=== PATIENT | female | born 1990 | race Two or more races ===

== ENCOUNTER 2023-03-31 15:25 | Emergency (ER) | payer MEDICAID, SELFPAY ==
[2023-03-31 15:36] VITALS: BP 136/76; PULSE 76; RESP 18; TEMP 37; O2SAT 98; BMI 31.8
--- NOTE | 2023-03-31 15:36 | ED.GENADULT ---
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 She reports the blood is only present when she wipes however it does not filled the toilet. Has never had a colonoscopy. This is never happened to her in the past other than over the past month. Patient tells me that she has been more constipated than usual over the past few months, unsure why. Is not followed by GI. She reports she gets intermittent abdominal cramping however not present at this time. Patient denies nausea, vomiting, headache, vision changes, dizziness, weakness, chest pain, shortness of breath. Not on blood thinners Related Data Previous Rx's Medication Instructions Recorded docusate sodium 100 mg capsule 100 mg PO BID #20 caps 03/31/23 (Colace) sennosides 8.6 mg tablet (senna) 8.6 mg PO BEDTIME #14 tabs 03/31/23 Allergies Allergy/AdvReac Type Severity Reaction Status Date / Time No Known Allergies Allergy Verified 03/31/23 15:46 Review of Systems Review of Systems: Constitutional : No Weight loss, No Fever, No Chills, No Fatigue, No Malaise ENT/Mouth : No sore throat, No Rhinorrhea Eyes: No Eye Pain, No Swelling, No Redness Cardiovascular : No Chest Pain, No SOB, No Dyspnea on Exertion, No Orthopnea, No Edema, No Palpitations Respiratory : No Cough, No Sputum, No Wheezing Gastrointestinal : No Nausea, No Vomiting, No Diarrhea, No Constipation, No abdominal Pain, + Hematochezia, No Melena Genitourinary : No Dysuria, No Urinary Frequency, No Hematuria, Musculoskeletal : No joint pain, No Myalgias, No Joint Swelling Skin : No Skin Lesions, No rash Neuro : No Weakness, No Numbness, No Dizziness, No Headache Psych : No Anxiety/Panic, No Depression All other systems reviewed and are negative Yes all other systems are reviewed and are negative [facility] Past Medical History Attestation statement: The following information was validated with the patient. Source: old records reviewed and nursing notes reviewed Social History Social History Smoked in Last 30 Days: No Use of substances other than those prescribed or required for medical reasons: No Physical Exam ED Vital Signs: Vital Signs - 24 hr 03/31/23 15:36 Temperature 98.6 F Pulse Rate 76 Respiratory Rate 18 Blood Pressure 136/76 Pulse Oximetry 98 Oxygen Delivery Method Room Air BMI result Body Mass Index 31.8 vss Appearance: Alert.? Oriented X3.? No acute distress.? Head: Normocephalic, atraumatic, no step-offs or deformities Eyes: Pupils equal, round and reactive to light.? ENT: Pharynx normal.? Neck: Normal inspection.? Neck supple.? CVS: Normal heart rate and rhythm.? Pulses normal.? Respiratory: No respiratory distress.? Breath sounds normal.? Abdomen: Soft and nontender.? Skin: Skin warm and dry.? Normal skin color.? Normal skin turgor.? Extremities: No lower extremity edema.? No calf ttp. 5/5 strength to bilateral upper and lower extremities Back: No midline tenderness, no C-spine tenderness, full range of motion, no CVA tenderness bilaterally Neuro: Oriented X 3.? No motor deficit.? No sensory deficit. CN 2-12 intact Sensitive exam: Normal external rectum, no visualize hemorrhoids. Normal digital rectal exam, no blood noted on AYESHA. Normal rectal tone. No fissures or lesions noted. Course Course Course Narrative: This is an RME: Additional HPI, ROS, PE not included below will be deferred to primary provider. This is a 33-year-old Creole speaking female, with a history of insomnia, migraines, positive DEAN, presenting to the emergency department for evaluation of abdominal pain x 1 month. Pt had bowel movement today and noticed blood on the toilet paper. Defer imaging until seen by primary provider in main emergency department. VSS. Plan: Labs and UA ordered. Reevaluation(s) Reevaluation #1: CBC unremarkable x2. No signs of acute blood loss anemia. Chemistry no acute findings requiring intervention at this time. Normal lipase. Abdomen remains nontender on exam no need for imaging. Negative OBS. I suspect likely anal fissure/rectal fissure tear secondary to constipation. Will discharge patient home with stool softeners. Will give her handout on dietary changes/increased water intake. Will have her follow-up with GI as she has not had a colonoscopy and is reporting blood in stool. Educated patient on diagnosis and treatment plan, answered all question, patient verbalizes understanding. At this time patient will be discharged home, advised to return with new or worsening symptoms. Educated on worrisome signs and symptoms and when to return. At this time I feel comfortable discharge home. Time: 17:59 Medical Decision Making Medical Decision Making [facility] Narrative: 33-year-old female presents with blood on toilet paper after she wipes intermittently for the past month and intermittent abdominal pain, not present at this time. Physical exam benign, Normal external rectum, no visualize hemorrhoids. Normal digital rectal exam, no blood noted on AYESHA. Normal rectal tone. No fissures or lesions noted. Mague CORDOVA at bedside This is likely rectal fissure secondary to constipation/heart stool or possible small internal hemorrhoids that may be intermittently bleeding. Low suspicion for large lower GI bleed. Will rule out electrolyte abnormalities and anemia although unlikely. Plan at this time digital rectal exam, basic labs. CBC done at triage, will repeat to make sure patient is not losing blood. Differential Diagnosis Differential Diagnoses: The differential diagnosis associated with the presentation includes This is likely rectal fissure secondary to constipation/heart stool or possible small internal hemorrhoids that may be intermittently bleeding. Low suspicion for large lower GI bleed. Will rule out electrolyte abnormalities and anemia although unlikely. Admission/Observation Consideration of admission/observation: Escalation of care including admission/observation considered Not indicated Lab Data [facility] Lab Attestation statement: I reviewed the patient's lab results. 03/31/23 15:58 03/31/23 15:58 Labs: Lab Results 03/31/23 03/31/23 03/31/23 Range/Units 15:58 15:58 17:40 WBC 4.5 L (4.8-10.8) X10*3/uL RBC 4.71 (4.20-5.50) X10*6/uL Hgb 13.7 (12.0-16.0) g/dl Hct 41.0 (37.0-47.0) % MCV 87.0 (80.0-98.0) fL MCH 29.1 (27.0-33.0) pg MCHC 33.4 (31.0-35.0) g/dl RDW 13.2 (11.0-16.0) % Plt Count 279 (160-400) X10*3/uL MPV 10.2 (9.4-12.3) fL Immature Gran % (Auto) 0.2 (0.0-0.4) % Neut % (Auto) 52.6 (45-73) % Lymph % (Auto) 38.1 (20-40) % Ward % (Auto) 8.0 (2-11) % Eos % (Auto) 0.7 (0-4) % Baso % (Auto) 0.4 (0-2) % Lymph # (Auto) 1.7 (1.2-4.9) X10*3/uL Ward # (Auto) 0.4 (0.1-1.2) X10*3/uL Eos # (Auto) 0.0 (0.0-0.4) X10*3/uL Baso # (Auto) 0.0 (0.0-0.2) X10*3/uL Abs Immat Gran (auto) 0.01 (0.00-0.03) X10*3/uL Absolute Neuts (auto) 2.4 (2.0-8.3) x10*3/uL Absolute Nucleated RBC 0.000 (0.0-0.012) X10*3/uL Nucleated RBC % (auto) 0.0 (0.0-0.2) /100WBC Sodium 138 (135-145) mmol/L Potassium 4.4 (3.3-5.1) mmol/L Chloride 108 (96-108) mmol/L Carbon Dioxide 24 (22-29) mmol/L Anion Gap 10 L (12-20) BUN 8 L (9-16) mg/dL Creatinine 0.70 (0.5-1.4) mg/dL Estim Creat Clear Calc 130.6 Estimated GFR > 60 Random Glucose 91 (60-115) mg/dL Calcium 9.4 (8.4-10.2) mg/dL Total Bilirubin 0.8 (0.0-1.0) mg/dL Direct Bilirubin 0.2 (0.0-0.5) mg/dL AST 19 (5-31) U/L ALT 16 (0-31) U/L Alkaline Phosphatase 70 (39-117) U/L Total Protein 8.3 H (6.5-8.0) g/dL Albumin 4.3 (3.5-5.0) g/dL Lipase 22 (8-78) U/L Stool Occult Blood NEGATIVE (NEGATIVE) Tests considered The following testing was considered but not selected: No need for lower GI bleeding study or CT scan of abdomen no abdominal tenderness on exam. Low suspicion for lower GI bleed. Core Measures AMI core measures followed: Yes Measure exclusions: not indicated Discharge Plan Discharge Clinical Impression: Constipation, Blood in stool Patient Disposition: Home, Self-Care Instructions: Constipation (ED), Rectal Bleeding (ED), High Fiber Diet (ED) Additional Instructions: Take your medications as prescribed. If you were prescribed antibiotics today, it is important that you take your medication to their entirety, do not skip any doses, do not finish them early. Follow-up with your primary care provider this week. Follow-up with gastroenterology you may require a colonoscopy. Return to the emergency department with new or worsening symptoms. Such as fevers, chills, chest pain, shortness of breath, nausea, vomiting, dizziness, headache, vision changes, lethargy In case of emergency call 911 You can take senna and Colace for constipation. This will help soften your stools. Drink plenty of fluids. And increase fiber intake Pran medikaman w yo ervin yo preskri w la. Si yo te preskri w antibyotik jeanne a, li enp?anderson hollie w hernando diaz ou an geovanna baldwin [facility] d?zgeovanna yo bon?. Swiv ak founis? swen prensipal ou clement?n sa a. Christianov ak gastroenteroloji ou remedios baker. Retounen mahnaz depvalentina [place] ak sent?m javier casey pi grav. Tankou lafy?v, frison, doul? nan pwatrin, souf kout, k? plen, vomisman, v?tij, malt?t, hadley lai. Nan ka ijans rele 911 Ou ka pran Senna ak Colace hollie konstipasyon. Sa a pral tracy adousi poupou ou yo. Bw? anpil likid. Ak ogmante konsomasyon fib Prescriptions: New sennosides [senna] 8.6 mg tablet 8.6 mg PO BEDTIME Qty: 14 0RF docusate sodium [Colace] 100 mg capsule 100 mg PO BID Qty: 20 0RF Referrals: Niall Mojica MD [Primary Care Provider] - 2 days Stand Alone Forms: Work/School Release
[2023-03-31 16:02] LABS: MANUAL DIFF FLAG NO
[2023-03-31 16:03] LABS: Basophils Percent Auto 0.4 % (0-2); Eosinophils Percent Auto 0.7 % (0-4); Hemoglobin 13.7 g/dl (12.0-16.0); Imm Gran Abs Auto 0.01 X10*3/uL (0.00-0.03); Imm Gran Pct Auto 0.2 % (0.0-0.4); Lymphocytes Absolute Auto 1.7 X10*3/uL (1.2-4.9); Lymphocytes Percent Auto 38.1 % (20-40); Mean Corpuscular HGB Conc 33.4 g/dl (31.0-35.0); Mean Corpuscular Hemoglobin 29.1 pg (27.0-33.0); Mean Platelet Volume 10.2 fL (9.4-12.3); Monocytes Absolute Auto 0.4 X10*3/uL (0.1-1.2); Neutrophils Absolute Auto 2.4 x10*3/uL (2.0-8.3); Neutrophils Percent Auto 52.6 % (45-73); Platelet Count 279 X10*3/uL (160-400); Red Blood Count 4.71 X10*6/uL (4.20-5.50); Red Cell Distribution Width 13.2 % (11.0-16.0); White Blood Count 4.5 X10*3/uL (4.8-10.8)
[2023-03-31 16:24] LABS: Alanine Aminotransferase 16 U/L (0-31); Albumin Level 4.3 g/dL (3.5-5.0); Alkaline Phosphatase 70 U/L (39-117); Anion Gap 10 (12-20); Aspartate Amino Transferase 19 U/L (5-31); Bilirubin Direct 0.2 mg/dL (0.0-0.5); Bilirubin Total 0.8 mg/dL (0.0-1.0); Blood Urea Nitrogen 8 mg/dL (9-16); Calcium 9.4 mg/dL (8.4-10.2); Carbon Dioxide 24 mmol/L (22-29); Chloride 108 mmol/L (96-108); Creatinine Clr Calc Pharmacy 130.6; Estimated Glomerular Filt Rate > 60; Glucose Random 91 mg/dL (60-115); Lipase 22 U/L (8-78); Potassium 4.4 mmol/L (3.3-5.1); Sodium 138 mmol/L (135-145); Total Protein 8.3 g/dL (6.5-8.0)
[2023-03-31 17:49] LABS: MANUAL DIFF FLAG NO
[2023-03-31 17:50] LABS: OBS Int Ctl Valid YES; OBS1 NEGATIVE (NEGATIVE)
[2023-03-31 17:54] LABS: Basophils Percent Auto 0.4 % (0-2); Eosinophils Percent Auto 0.6 % (0-4); Hematocrit 41.2 % (37.0-47.0); Imm Gran Abs Auto 0.03 X10*3/uL (0.00-0.03); Imm Gran Pct Auto 0.6 % (0.0-0.4); Lymphocytes Absolute Auto 2.1 X10*3/uL (1.2-4.9); Mean Corpuscular Hemoglobin 29.8 pg (27.0-33.0); Mean Corpuscular Volume 87.7 fL (80.0-98.0); Mean Platelet Volume 10.3 fL (9.4-12.3); Monocytes Absolute Auto 0.5 X10*3/uL (0.1-1.2); Monocytes Percent Auto 8.8 % (2-11); Neutrophils Absolute Auto 2.6 x10*3/uL (2.0-8.3); Neutrophils Percent Auto 49.6 % (45-73); Platelet Count 285 X10*3/uL (160-400); Red Cell Distribution Width 13.1 % (11.0-16.0); White Blood Count 5.2 X10*3/uL (4.8-10.8)
[2023-03-31 18:01] VITALS: BP 125/74; PULSE 92; RESP 16; O2SAT 100
[2023-03-31 18:08] LABS: Appearance Urine Clear; Color Urine Yellow; Glucose Urine UA Negative (Negative); Leukocyte Esterase Urine Trace (Negative); Nitrite Urine Negative (Negative); Specific Gravity - Urine 1.015 (1.005-1.025); UMIC TRIGGER UACC YES; Urine Blood Negative (Negative); Urine Ketones 15 mg/dL (Negative); Urine Protein Negative (Neg-Trace)
[2023-03-31 18:20] LABS: Bacteria Urine 3+ (None Seen); Hyaline Casts Urine 0-2 /LPF (0-2); RBC Urine 0-2 /HPF (0-2); UACC Culture Trigger YES
--- OUTSIDE RECORDS SUMMARY | 2023-03-31 18:36 | XMS_ITS | Continuity of Care Document ---
Author Name Unknown Organization [facility] ter Address [address] [place] [id number]- Care Team Providers Care Boom Stick Man Name Role Phone Not on Staff, PCP Primary Care Physician Unavail able Encounter [facility] Date(s): 01/30/23 - 01/30/[address] [address]- Encounter Diagnosis Atypical chest pain(Final) - 01/30/23 Chest wall pain(Final) - 01/30/23 Discharge Disposition: A-D/C Home Attending Physician: Tiara Fajardo MD Admitting Physician: Tiara Fajardo MD Referring Physician: Not on Staff, Referring MD Allergies, Adverse Reactions, Alerts No Known Allergies Medications lidocaine 5% topical film 1 patch, Topically, Daily, PRN Pain , Mild, Apply to painful area. remove after 12 hours, # 13 each, 0 Refills, Acute 03/02/23 12:00:00 EDT, 01/30/23 7:17:00 EDT, Film, [facility], Partial fill upon patient request if the prescrip... Start Date: 01/30/23 Stop Date: 03/02/23 Status: Ordered Motrin IB 200 mg oral tablet 2 tablet = 400 mg, By Mouth, Every 6 hours, PRN for pain, # 120 tablet, 0 Refills, Maintenance, 10/30/22 18:59:00 EST, Tablet, [facility]/pharmacy #[id number], Partial fill upon patient request if the prescription is for a schedule II opioid drug., 170, cm, ... Start Date: 10/30/22 Status: Ordered Tylenol 325 mg oral capsule 2 capsule = 650 mg, By Mouth, Every 6 hours, PRN as needed for fever, # 90 capsule, 0 Refills, Acute 06/02/23 12:00:00 EDT, 01/30/23 7:16:00 EDT, Capsule, [facility], Partial fillupon patient request if the prescription is for a s... Start Date: 01/30/23 Stop Date: 06/02/23 Status: Ordered Tylenol 325 mg oral tablet 650 mg, 2, tablet, By Mouth, Every 6 hours, PRN, # 120 tablet, Refills 0, Tot. Refills 0, Maintenance, for pain, 10/30/22 18:59:00 EST, Route to Pharmacy Electronically, [facility]/pharmacy #[id number], Partial fill upon patient request if the prescription is for... Start Date: 10/30/22 Status: Ordered Results Radiology Reports * Exam Date Time Procedure Performing Provider Status 01/30/23 6:36 AM US RUQ Marilee Martinez; Auth (V erified) Notes: (US RUQ) Reason For Exam: Abdominal Pain;Other: RESULT: US RUQ US RUQ Hx of Present Illness: epigastric pain x1 day, unable to get comfortable due to the pain. also c o sob due to pain and weakness. states had similar symptoms in past and it was due to H. pylori infection. Denies n v; Reason: Other:; Abdominal Pain; Clinical Question(s): Cholecystitis COMPARISON: None. FINDINGS: Liver: Normal in size and echotexture. No focal lesion. Smooth hepatic contour. Main portal vein patent with normal hepatopetal direction of flow. Gallbladder: No gallstones. Normal wall thickness. No pericholecystic fluid. Negative Brown sign. Biliary Tree: No intrahepatic or extrahepatic bile duct dilation is identified. Common duct measures: 0.3 cm. Pancreas: No abnormality in the visualized portions of the pancreas. Right kidney: 8.6 cm in length. Normal parenchymal echotexture and thickness. No hydronephrosis, stone or mass. IMPRESSION: Normal right upper quadrant ultrasound. I have personally reviewed the images and I agree with this report. WSN: [id number] Ordering Physician: James Honeycutt Dictated By: Jennifer Blanco MD Dictated Date/Time: 01/30/23 7:37 am Reviewed By: Gaston Joseph MD Signed By: Gaston Joseph MD Signed Date/Time: 01/30/23 7:42 am Transcribed By: TRIPP Transcribed Date/Time: 01/30/23 7:14 am * Exam Date Time Procedure Performing Provider Status 01/30/23 5:46 AM Chest 2 Views Frontal and Lat Charles Viera; Auth (Verified) Notes: (Chest 2 Views Frontal and Lat) Reason For Exam: Shortness of Breath, Fever;Other: RESULT: Chest 2 Views Frontal and Lat Chest 2 Views Frontal and Lat Hx of Present Illness: epigastric pain x1 day, unable to get comfortable due to the pain. also c o sob due to pain and weakness. COMPARISON: 10/30/2022 FINDINGS: LINES AND TUBES: None. LUNGS AND PLEURA: Clear lungs. Normal pulmonary vascularity. No pleural effusion. No pneumothorax. HEART, MEDIASTINUM AND KIMBERLY: Heart is normal in size. Normal mediastinal and hilar contour. BONES AND SOFT TISSUES: Normal. IMPRESSION: Normal. WSN: [id number] Ordering Physician: James Honeycutt Dictated By: Fabián Mcdonald MD Dictated Date/Time: 01/30/23 7:03 am Reviewed By: Fabián Mcdonald MD Signed By: Fabián Mcdonald MD Signed Date/Time: 01/30/23 7:03 am Transcribed By: TRIPP Transcribed Date/Time: 01/30/23 7:03 am Vital Signs Most recent to oldest [Reference Range]: 1 2 3 Oxygen Saturation [94-100 %] 100 % (01/30/23 7:30 AM) 100 % (01/30/23 6:14 AM) 98 % (01/30/23 3:05 AM) Pulse Rate [55-90 bpm] 78 bpm (01/30/23 7:30 AM) 83 bpm (01/30/23 6:14 AM) 77 bpm (01/30/23 3:05 AM) Blood Pressure [90-138/55-84 mm Hg] 113/59mm Hg (01/30/23 7:30 AM) 128/72mm Hg (01/30/23 6:14 AM) 130/80mm Hg (01/30/23 3:05 AM) Respiratory Rate [16-30 br/min] 18 br/min (01/30/23 7:30 AM) 18 br/min (01/30/23 6:14 AM) 20 br/min (01/30/23 3:05 AM) Temperature [96.8-100.4 DegF] 98.4 DegF (01/30/23 7:30 AM) 98.5 DegF (01/30/23 3:05 AM) Mode of Delivery (Oxygen) Room air (01/30/23 7:30 AM) Room air (01/30/23 6:14 AM) Room air (01/30/23 3:05 AM) Blood pressure sites Arm, right (01/30/23 7:30 AM) Arm, right (01/30/23 6:14 AM) Arm, left (01/30/23 3:05 AM) Temperature Route Oral (01/30/23 7:30 AM) Oral (01/30/23 3:05 AM) Dry Weight 102 kg (01/30/23 3:31 AM) Dry Weight Obtained Via Standing scale (01/30/23 3:31 AM) EKG study * Event Display: ECG 12-Lead Authored Date: Please click on pdf link to open report * Event Display: ECG 12-Lead Authored Date: Ventricular Rate: 94 BPM Atrial Rate: 94 BPM P-R Interval: 146 ms QRS Duration: 84 ms Q-T Interval: 378 ms QTC Calculation(Bazett): 472 ms P Abie: 34 degrees R Abie: 44 degrees T Abie: 79 degrees Normal sinus rhythm Nonspecific T wave abnormality Prolonged QT Abnormal ECG When compared with ECG of 21-DEC-2022 12:13, No significant change was found Confirmed by IVETTE COYLE MD ([id number]) on 01/30/2023 8:42:26 AM [place]: IVETTE COYLE MD Note * James Honeycutt MD: PERFORM Event Display: Patient Education Leaflets Authored Date: [id number] Chest Wall Pain: Costochondritis ?? [id number] Chest Wall Pain: Costochondritis The chest pain that you have had today is caused by costochondritis. This condition is caused by aninflammation of the cartilage joining your ribs to your breastbone. It's not caused by heart or lung problems. Your healthcare team has made sure that the chest pain you feel is not from a life threatening cause of chest pain such as heart attack, collapsed lung, blood clot in the lung, tear in theaorta, or esophageal rupture. The inflammation may have been brought on by a blow to the chest, lifting heavy objects, intense exercise, or an illness that made you cough and sneeze a lot. It??often occurs??during times of emotional stress.??It can be painful, but it's not dangerous. It usually goes away in 1 to 2 weeks. But it may happen again. Rarely, a more serious condition may cause symptomssimilar to costochondritis. That???s why it???s important to watch for the warning signs listed below. Home care Follow these guidelines when caring for yourself at home: ??? If you feel that emotional stress is a cause of your condition, try to figure out the sources of that stress. It may not be obvious. Learn ways to deal with the stress in your life. This can include regular exercise, muscle relaxation, meditation, or simply taking time out for yourself. ??? You may use acetaminophen, ibuprofen, or naproxen to control pain, unless another pain medicine was prescribed. If you have liver or kidney disease or ever had a stomach ulcer, talk with your healthcare provider before using these medicines. ???You can also help ease pain by using a hot, wet compress or heating pad. Use this with or without amedicated skin cream that helps relieves pain. ??? Do stretching exercise as advised by your provider. Typically rest is beneficial for the first few days. Avoid strenuous activity that worsens the pain. ??? Take any prescribed medicines as directed. ?? Follow-up care Follow up with your healthcare provider, or as advised. Call 911 Call 911 if any of these occur: ??? A change in the type of pain which feels different, becomes more serious, lasts longer, or spreads into your shoulder, arm, neck, jaw, or back ??? Fainting ??? Shortness of breath or trouble breathing ?? When to get medical advice Call your healthcare provider right away if any of these occur: ??? Pain gets worse when you breathe ??? Weakness or dizziness ??? Cough with dark-colored sputum (phlegm) or blood ??? Fever of 100.4??F (38??C) or higher, or as advised by your provider ?? Last Reviewed Date: 2021 ?? [id number] [employer]. All rights reserved. This information is not intended as a substitute for professional medical care. Always follow your healthcare professional's instructions. ?? * DAWSON Amos S: Fabián Bo MD: VERIFY Event Display: Result: Authored Date: [id number] Chest 2 Views Frontal and Lat Hx of Present Illness: epigastric pain x1 day, unable to get comfortable due to the pain. also c o sob due to pain and weakness. COMPARISON: 10/30/2022 FINDINGS: LINES AND TUBES: None. LUNGS AND PLEURA: Clear lungs. Normal pulmonary vascularity. No pleural effusion. No pneumothorax. HEART, MEDIASTINUM AND KIMBRELY: Heart is normal in size. Normal mediastinal and hilar contour. BONES AND SOFT TISSUES: Normal. IMPRESSION: Normal. WSN: [id number] Ordering Physician: James Honeycutt Dictated By: Fabián Mcdonald MD Dictated Date/Time: 01/30/23 7:03 am Reviewed By: Fabián Mcdonald MD Signed By: Fabián Mcdonald MD Signed Date/Time: 01/30/23 7:03 am Transcribed By: TRIPP Transcribed Date/Time: 01/30/23 7:03 am US Abdomen RUQ * DAWSON Aoms S: Gaston Martell MD: VERIFY Jennifer Blanco MD: SIGN Event Display: Result: Authored Date: [id number] US RUQ Hx of Present Illness: epigastric pain x1 day, unable to get comfortable due to the pain. also c o sob due to pain and weakness. states had similar symptoms in past and it was due to H. pylori infection. Denies n v; Reason: Other:; Abdominal Pain; Clinical Question(s): Cholecystitis COMPARISON: None. FINDINGS: Liver: Normal in size and echotexture. No focal lesion. Smooth hepatic contour. Main portal vein patent with normal hepatopetal direction of flow. Gallbladder: No gallstones. Normal wall thickness. No pericholecystic fluid. Negative Brown sign. Biliary Tree: No intrahepatic or extrahepatic bile duct dilation is identified. Common duct measures: 0.3 cm. Pancreas: No abnormality in the visualized portions of the pancreas. Right kidney: 8.6 cm in length. Normal parenchymal echotexture and thickness. No hydronephrosis, stone or mass. IMPRESSION: Normal right upper quadrant ultrasound. I have personally reviewed the images and I agree with this report. WSN: [id number] Ordering Physician: James Honeycutt Dictated By: Jennifer Blanco MD Dictated Date/Time: 01/30/23 7:37 am Reviewed By: Gaston Joseph MD Signed By: Gaston Joseph MD Signed Date/Time: 01/30/23 7:42 am Transcribed By: TRIPP Transcribed Date/Time: 01/30/23 7:14 am Patient Care team information Care Team Personnel Name: Not on Staff, PCP Position: [facility] Physician (General Medicine) Member Role: PCP Name: Fadumo Akers RN Position: [facility] ED RN W/OE and Tasks Member Role: Patient Care Provider Name: Tiara Fajardo MD Position: [facility] ED Medicine MD Member Role: Admitting Physician Address: Address: [address] [place] [address] Name: Diane Dale RN Position: [facility] ED RN W/OE and Tasks Member Role: Patient Care Provider Name: James Honeycutt MD Position: [facility] Resident Member Role: ED Resident Address: Address: [address] [place] [address]
--- OUTSIDE RECORDS SUMMARY | 2023-03-31 18:36 | XMS_ITS | Continuity of Care Document ---
Author Name Unknown Organization [facility] ter Address [address] [place] [id number]- Care Team Providers Care Training Specialist Name Role Phone Not on Staff, PCP Primary Care Physician Unavail able [place] [facility] [place] 01/31/23 - 01/31/[address] [address]- Discharge Disposition: A-D/C Walkout Attending Physician: Not on Staff, Attending MD Admitting Physician: Not on Staff, Admitting MD Referring Physician: Not on Staff, Referring MD Allergies, Adverse Reactions, Alerts No Known Allergies Medications lidocaine 5% topical film 1 patch, Topically, Daily, PRN Pain , Mild, Apply to painful area. remove after 12 hours, # 13 each, 0 Refills, Acute 03/02/23 12:00:00 EDT, 01/30/23 7:17:00 EDT, Film, [facility], Partial fill upon patient request if the prescrip... Start Date: 01/30/23 Stop Date: 03/02/23 Status: Ordered Motrin IB 200 mg oral tablet 2 tablet = 400 mg, By Mouth, Every 6 hours, PRN for pain, # 120 tablet, 0 Refills, Maintenance, 10/30/22 18:59:00 EST, Tablet, [facility]/pharmacy #[id number], Partial fill upon patient request if the prescription is for a schedule II opioid drug., 170, cm, ... Start Date: 10/30/22 Status: Ordered Tylenol 325 mg oral capsule 2 capsule = 650 mg, By Mouth, Every 6 hours, PRN as needed for fever, # 90 capsule, 0 Refills, Acute 06/02/23 12:00:00 EDT, 01/30/23 7:16:00 EDT, Capsule, [facility], Partial fillupon patient request if the prescription is for a s... Start Date: 01/30/23 Stop Date: 06/02/23 Status: Ordered Tylenol 325 mg oral tablet 650 mg, 2, tablet, By Mouth, Every 6 hours, PRN, # 120 tablet, Refills 0, Tot. Refills 0, Maintenance, for pain, 10/30/22 18:59:00 EST, Route to Pharmacy Electronically, [facility]/pharmacy #[id number], Partial fill upon patient request if the prescription is for... Start Date: 10/30/22 Status: Ordered Vital Signs Most recent to oldest [Reference Range]: 1 2 3 Weight 102 kg (01/31/23 4:24 AM) Oxygen Saturation [94-100 %] 100 % (01/31/23 1:22 PM) 99 % (01/31/23 10:49 AM) 99 % (01/31/23 9:11 AM) Pulse Rate [55-90 bpm] 92 bpm *H* (01/31/23 1:22 PM) 85 bpm (01/31/23 10:49 AM) 91 bpm *H* (01/31/23 9:11 AM) Blood Pressure [90-138/55-84 mm Hg] 152/85mm Hg *H* (01/31/23 1:22 PM) 137/86mm Hg (01/31/23 10:49 AM) 138/70mm Hg (01/31/23 9:11 AM) Respiratory Rate [16-30 br/min] 20 br/min (01/31/23 4:24 AM) Temperature [96.8-100.4 DegF] 97.6 DegF (01/31/23 1:22 PM) 97.6 DegF (01/31/23 10:49 AM) 98.2 DegF (01/31/23 9:11 AM) Mode of Delivery (Oxygen) Room air (01/31/23 1:22 PM) Room air (01/31/23 10:49 AM) Room air (01/31/23 9:11 AM) Blood pressure sites Arm, right (01/31/23 1:22 PM) Arm, right (01/31/23 10:49 AM) Arm, right (01/31/23 9:11 AM) Temperature Route Oral (4/24/23 1:22 PM) Oral (01/31/23 10:49 AM) Oral (01/31/23 9:11 AM) Weight Obtained Via Patient/family state d (01/31/23 4:24 AM) Patient Care team information Care Team Personnel Name: Not on Staff, PCP Position: [facility] Physician (General Medicine) Member Role: PCP
--- OUTSIDE RECORDS SUMMARY | 2023-03-31 18:36 | XMS_ITS | Continuity of Care Document ---
Author Name Unknown Organization [facility] ter Address [address] [place] [id number]- Care Team Providers Care Suspender Cutter Name Role Phone Not on Staff, PCP Primary Care Physician Unavail able [place] [facility] [place] - 10/30/[address] [phone]- Discharge Disposition: A-D/C Home Attending Physician: Mariangel Ames MD Admitting Physician: Mariangel Ames MD Referring Physician: Not on Staff, Referring MD Allergies, Adverse Reactions, Alerts No Known Allergies Medications Motrin IB 200 mg oral tablet 2 tablet = 400 mg, By Mouth, Every 6 hours, PRN for pain, # 120 tablet, 0 Refills, Maintenance, 10/30/22 18:59:00 EST, Tablet, [facility] #[id number], Partial fill upon patient request if the prescription is for a schedule II opioid drug., 170, cm, ... Start Date: 10/30/22 Status: Ordered Tylenol 325 mg oral tablet 650 mg, 2, tablet, By Mouth, Every 6 hours, PRN, # 120 tablet, Refills 0, Tot. Refills 0, Maintenance, for pain, 10/30/22 18:59:00 EST, Route to Pharmacy Electronically, [id number], Partial fill upon patient request if the prescription is for... Start Date: 10/30/22 Status: Ordered Results Radiology Reports * Exam Date Time Procedure Performing Provider Status 10/30/22 3:41 PM Chest 2 Views Frontal and Lat Valentina Pantoja; Auth (Verified) Notes: (Chest 2 Views Frontal and Lat) Reason For Exam: Shortness of Breath RESULT: Chest 2 Views Frontal and Lat Examination: Chest performed on 10/30/2022. History: Shortness of breath. Findings: Frontal and lateral views of the chest are submitted without comparison. The cardiac and mediastinal silhouettes are within normal limits. The lungs are clear. The osseous and soft tissue structures are unremarkable. Impression: There is no acute cardiopulmonary disease. WSN: [id number] Ordering Physician: Augustin Geller Dictated By: Fabi Acosta MD Dictated Date/Time: 10/30/22 3:47 pm Reviewed By: Fabi Acosta MD Signed By: Fabi Acosta MD Signed Date/Time: 10/30/22 3:47 pm Transcribed By: TRIPP Transcribed Date/Time: 10/30/22 3:46 pm Vital Signs Most recent to oldest [Reference Range]: 1 2 3 Height 170 cm (10/30/22 6:02 PM) 170 cm (10/30/22 3:07 PM) Weight 85 kg (10/30/22 6:02 PM) 85 kg (10/30/22 3:07 PM) Oxygen Saturation [94-100 %] 100 % (10/30/22 7:38 PM) 98 % (10/30/22 6:02 PM) 100 % (10/30/22 2:38 PM) Pulse Rate [55-90 bpm] 79 bpm (10/30/22 7:38 PM) 80 bpm (10/30/22 6:02 PM) 84 bpm (10/30/22 2:38 PM) Body Mass Index [18.5-24.99 kg/m2] 29.41 kg/m2 *H* (10/30/22 6:02 PM) Blood Pressure [90-138/55-84 mm Hg] 137/73mm Hg (10/30/22 7:38 PM) 120/52mm Hg (10/30/22 6:02 PM) 128/71mm Hg (10/30/22 2:38 PM) Respiratory Rate [16-30 br/min] 18 br/min (10/30/22 7:38 PM) 18 br/min (10/30/22 6:02 PM) 18 br/min (10/30/22 2:38 PM) Temperature [96.8-100.4 DegF] 98.4 DegF (10/30/22 2:38 PM) Mode of Delivery (Oxygen) Room air (10/30/22 6:02 PM) Room air (10/30/22 2:38 PM) Blood pressure sites Arm, right (10/30/22 7:38 PM) Arm, right (10/30/22 6:02 PM) Temperature Route Oral (10/30/22 2:38 PM) Dry Weight 85 kg (10/30/22 6:02 PM) 85 kg (10/30/22 3:07 PM) Note * [facility] , CIS S: TRANSCRIBE Fabi Acosta MD: VERIFY Event Display: Result: Authored Date: [id number] Examination: Chest performed on 10/30/2022. History: Shortness of breath. Findings: Frontal and lateral views of the chest are submitted without comparison. The cardiac and mediastinal silhouettes are within normal limits. The lungs are clear. The osseous and soft tissue structures are unremarkable. Impression: There is no acute cardiopulmonary disease. WSN: [id number] Ordering Physician: Augustin Geller Dictated By: Fabi Acosta MD Dictated Date/Time: 10/30/22 3:47 pm Reviewed By: Fabi Acosta MD Signed By: Fabi Acosta MD Signed Date/Time: 10/30/22 3:47 pm Transcribed By: TRIPP Transcribed Date/Time: 10/30/22 3:46 pm Patient Care team information Care Team Personnel Name: Not on Staff, PCP Position: [facility] Physician (General Medicine) Member Role: PCP Name: Rowena Hollingsworth Position: [facility] ED RN W/OE and Tasks Member Role: Patient Care Provider Name: Mendez Stone Jr Position: [facility] ED TA [facility] Name: Mariangel Ames MD Position: [facility] ED Medicine MD Member Role: Admitting Physician Address: Address: [address] [place] [address] Name: Jorge Jasso RN Position: [facility] ED RN W/OE and Tasks Member Role: Patient Care Provider Name: Augustin Geller MD Position: [facility] Resident Member Role: ED Resident Address: Address: [address] [place] [address]
[2023-03-31 18:41] VITALS: BP 129/71; PULSE 81; RESP 16; O2SAT 98
== END 2023-03-31 19:03 | disposition home or self-care (01) ==
LOC: HO.ED 18:34
PROVIDERS: Physician Assistant; Physician Assistant Medical; Emergency Provider Emergency Medicine; PCP Emergency Medicine
DX: K59.00 Constipation, unspecified (principal); K62.5 Hemorrhage of anus and rectum
CPT/HCPCS: 36415; 80048; 80076; 81001; 82272; 83690; 85025; 87086; 99283; 99284

== ENCOUNTER 2023-04-13 04:57 | Emergency (ER) | payer MEDICAID, SELFPAY ==
[2023-04-13 05:03] VITALS: BP 120/66; BP 120/80; PULSE 71; PULSE 74; RESP 12; TEMP 37; O2SAT 100; O2SAT 99; BMI 31.8
--- NOTE | 2023-04-13 05:19 | PC.NURSE ---
Pt aox4 reporting headache that started 30 min ago, 07/19. Reports unable to sleep. VSS. NSR on monitor. Denies lab work at this time time. Pending physician katalina.
--- NOTE | 2023-04-13 05:42 | ED.HA ---
HPI - Headache General Chief Complaint: Headache Stated Complaint: headache Time Seen by Provider: 04/13/23 05:38 Source: patient Mode of arrival: EMS Limitations: no limitations History of Present Illness HPI Narrative: Patient comes to the emergency room complaining of a migraine headache. Patient states she does have history of migraines. However the not frequent. Patient does not have a neurologist. Patient goes to the [facility]. Prior to arrival, patient took Tylenol without any relief. Patient states that it has been almost 12 hours since she has had this headache. Patient denies double vision, no neck pain, no chest pain. Patient complaining of photophobia Related Data Previous Rx's Medication Instructions Recorded docusate sodium 100 mg capsule 100 mg PO BID #20 caps 03/31/23 (Colace) sennosides 8.6 mg tablet (senna) 8.6 mg PO BEDTIME #14 tabs 03/31/23 sumatriptan succinate 50 mg tablet 50 mg PO Q2-4H PRN migraine 04/13/23 headache #10 tabs Allergies Allergy/AdvReac Type Severity Reaction Status Date / Time No Known Allergies Allergy Verified 03/31/23 15:46 Review of Systems Review of Systems: Constitutional : No Weight loss, No Fever, No Chills, No Night Sweats, No Fatigue, No Malaise ENT/Mouth : No Hearing loss, No Ear Pain, No Nasal Congestion, No Sinus Pain, No Hoarseness, No sore throat, No Rhinorrhea, No Swallowing Difficulty Eyes: No Eye Pain, No Swelling, No Redness, No Foreign Body, No Discharge, No Vision Changes Cardiovascular : No Chest Pain, No SOB, No Dyspnea on Exertion, No Orthopnea, No Edema, No Palpitations Respiratory : No Cough, No Sputum, No Wheezing, No Smoke Exposure, No Dyspnea Gastrointestinal : No Nausea, No Vomiting, No Diarrhea, No Constipation, No abdominal Pain, No Hematochezia, No Melena Genitourinary : no irregular bleeding, No Dysuria, No Urinary Frequency, No Hematuria, No Urinary Incontinence, No Urgency, No Flank Pain, No Urinary Flow Changes, No Hesitancy Musculoskeletal : No joint pain, No Myalgias, No Joint Swelling Skin : No Skin Lesions, No rash Neuro : No Weakness, No Numbness, No Paresthesias, No Loss of Consciousness, No Dizziness, being of a migraine headache Psych : No Anxiety/Panic, No Depression, No SI/HI/AH/VH, No Social Issues, Heme/Lymph: No Bruising, No Bleeding,No Lymphadenopathy Endocrine : No Polyuria, No Polydipsia, No Temperature Intolerance [facility] Past Medical History Medical History (Updated 04/13/23 @ 06:52 by Kathy Ibarra MD) Migraine headache Social History Social History Smoked in Last 30 Days: No Use of substances other than those prescribed or required for medical reasons: No Advance Directives: No Advance Directives Information Provided: Yes Patient : No Physical Exam Vital Signs: Vital Signs: Last Vital Signs Temp 98.6 F 04/13/23 05:03 Pulse 71 04/13/23 05:03 Resp 12 04/13/23 05:03 BP 120/66 04/13/23 05:03 Pulse Ox 100 04/13/23 05:03 O2 Del Method Room Air 04/13/23 05:03 BMI result Body Mass Index 31.8 Const: Other: Appearance: Alert. Oriented X3. No acute distress. Eyes: Pupils equal, round and reactive to light. Seems to have photophobia ENT: Pharynx normal. Neck: Normal inspection. Neck supple. No lymph nodes noted. No crepitus CVS: Normal heart rate and rhythm. Pulses normal. Normal S1 and S2 Respiratory: No respiratory distress. Breath sounds normal. No Wheezing. No rales Abdomen: Soft and nontender. No rigidity. No distention. Skin: Skin warm and dry. Normal skin color. Normal skin turgor. Extremities: No lower extremity edema. No Lacerations. No Rash Neuro: Oriented X 3. No motor deficit. No sensory deficit. Moving all extremities. No slurred speech. CN 2 through 12 grossly intact Psych: calm, cooperative, normal affect Course Course Course Narrative: -patient has history of migraines -patient receiving IV fluids, IV diphenhydramine, ketorolac and Reglan. Medications Administered Discontinued Medications Generic Name Dose Route Start Last Admin Trade Name Freq PRN Reason Stop Dose Admin Diphenhydramine HCl 25 mg 04/13/23 05:41 04/13/23 05:53 Diphenhydramine Hcl 50 Mg/Ml Vial IVPUSH 04/13/23 05:42 25 mg ONCE ONE Administration Sodium Chloride 1,000 mls @ 999 mls/hr 04/13/23 05:41 04/13/23 06:25 Ns IVCONT 04/13/23 06:41 0 mls/hr .Q1H1M ONE Infusion Ketorolac Tromethamine 30 mg 04/13/23 05:41 04/13/23 05:53 Ketorolac Tromethamine 30 Mg/Ml Vial IVPUSH 04/13/23 05:42 30 mg ONCE ONE Administration Metoclopramide HCl 10 mg 04/13/23 05:41 04/13/23 05:53 Metoclopramide Hcl 10 Mg/2 Ml Vial IVPUSH 04/13/23 05:42 10 mg ONCE ONE Administration Medical Decision Making Medical Decision Making [facility] Narrative: -the IV medications, patient states that she feels better but still having headache. 03/19. -patient was given 1 dose of p.o. sumatriptan. -clinical improvement pending -sign-out given to Dr. Krishnamurthy Differential Diagnosis Differential Diagnoses: The differential diagnosis associated with the presentation includes (Tension headache, migraine headache) Discharge Plan Discharge Clinical Impression: Migraine headache Patient Disposition: Still a Patient Instructions: Migraine Headache (ED) Additional Instructions: Please follow-up with your primary care physician tomorrow. If you have any worsening or new symptoms, please return to the emergency room or call 911 Prescriptions: New sumatriptan succinate 50 mg tablet 50 mg PO Q2-4H PRN (Reason: migraine headache) Qty: 10 0RF Rx Instructions: do not exceed 4 doses per 24 hrs No Action sennosides [senna] 8.6 mg tablet 8.6 mg PO BEDTIME Qty: 14 0RF docusate sodium [Colace] 100 mg capsule 100 mg PO BID Qty: 20 0RF
--- NOTE | 2023-04-13 05:58 | PC.NURSE ---
20G IV line started on the R AC. Medicated as ordered. Tolerated well.
--- NOTE | 2023-04-13 06:26 | PC.NURSE ---
Pt reports feeling cold. Req for NS to be paused for now. aware.
[2023-04-13] MEDS: SUMAtriptan succinate 100 MG TABLET PO (07:06)
--- NOTE | 2023-04-13 07:37 | PC.NURSE ---
pt is very sleepy, requiring tactile stimuli to stay awake. rr even/unlabored. provider aware.
[2023-04-13 07:38] VITALS: BP 123/68; PULSE 67; RESP 13; TEMP 36.5; O2SAT 99
[2023-04-13 10:05] VITALS: BP 121/60; PULSE 66; RESP 15; O2SAT 100
== END 2023-04-13 10:35 | disposition home or self-care (01) ==
PROVIDERS: Emergency Provider Emergency Medicine
DX: G43.909 Migraine, unspecified, not intractable, without status migrainosus (principal); Z79.899 Other long term (current) drug therapy
CPT/HCPCS: 96361; 96374; 96375; 99284; 99285; J1200; J1885; J2765

== ENCOUNTER 2023-04-14 21:30 | Emergency (ER) | payer MEDICAID, SELFPAY ==
[2023-04-14 21:40] VITALS: BP 128/66; PULSE 73; RESP 18; TEMP 36.2; O2SAT 98; BMI 34.1
--- NOTE | 2023-04-15 00:09 | ED.CHESTPAIN ---
HPI - Chest Pain General Chief Complaint: Chest Pain Stated Complaint: Chest Pain Time Seen by Provider: 04/15/23 00:07 Source: patient Mode of arrival: ambulatory Limitations: no limitations History of Present Illness HPI narrative: The healthy comes in for pain in the left chest started yesterday localized to 2nd intercostal space sharp get worse on palpation and movements history of similar pain 3 months ago no shortness of breath no cough no fever no chills no leg pain or swelling Related Data Previous Rx's Medication Instructions Recorded docusate sodium 100 mg capsule 100 mg PO BID #20 caps 03/31/23 (Colace) sennosides 8.6 mg tablet (senna) 8.6 mg PO BEDTIME #14 tabs 03/31/23 sumatriptan succinate 50 mg tablet 50 mg PO Q2-4H PRN migraine 04/13/23 headache #10 tabs ibuprofen 600 mg tablet 600 mg PO Q6H PRN fever or pain 04/15/23 #30 tabs Allergies Allergy/AdvReac Type Severity Reaction Status Date / Time No Known Allergies Allergy Verified 04/14/23 21:40 Review of Systems Review of Systems: Yes all other systems are reviewed and are negative [facility] Past Medical History Medical History Migraine headache Social History Social History Advance Directives: No Advance Directives Information Provided: No Physical Exam Vital Signs: Vital Signs: Last Vital Signs Temp 97.2 F 04/14/23 21:40 Pulse 73 04/14/23 21:40 Resp 18 04/14/23 21:40 BP 128/66 04/14/23 21:40 Pulse Ox 98 04/14/23 21:40 O2 Del Method Room Air 04/14/23 21:40 BMI result Body Mass Index 34.1 Appearance: Alert. Oriented X3. No acute distress. Neck: Normal inspection. Neck supple. CVS: Normal heart rate and rhythm. Pulses normal. Tenderness to touch left costochondral junction Respiratory: No respiratory distress. Equal air entry bilateral, no wheezing/rales/rhonchi Abdomen: Soft and nontender. Bowel sounds are present, no mass palpable, no CVA tenderness Skin: Skin warm and dry. Normal skin color. Normal skin turgor. Extremities: No lower extremity edema. No calf tenderness Neuro: Oriented X 3. No motor deficit. Medications Administered Discontinued Medications Generic Name Dose Route Start Last Admin Trade Name Rudi PRN Reason Stop Dose Admin Ibuprofen 600 mg 04/15/23 00:31 04/15/23 00:39 Ibuprofen 600 Mg Tablet PO 04/15/23 00:32 600 mg ONCE ONE Administration Medical Decision Making Medical Decision Making [facility] Narrative: Patient has atypical chest pain clinically costochondritis heart score of 0 EKG normal high sensitive troponin negative discharge patient home on ibuprofen Lab Data [facility] Lab Attestation statement: I reviewed the patient's lab results. 04/14/23 22:24 04/14/23 22:24 Labs: Lab Results 04/14/23 04/14/23 04/14/23 Range/Units 22:24 22:24 22:24 WBC 6.1 (4.8-10.8) X10*3/uL RBC 4.33 (4.20-5.50) X10*6/uL Hgb 12.7 (12.0-16.0) g/dl Hct 38.2 (37.0-47.0) % MCV 88.2 (80.0-98.0) fL MCH 29.3 (27.0-33.0) pg MCHC 33.2 (31.0-35.0) g/dl RDW 13.0 (11.0-16.0) % Plt Count 279 (160-400) X10*3/uL MPV 10.3 (9.4-12.3) fL Absolute Nucleated RBC 0.000 (0.0-0.012) X10*3/uL Nucleated RBC % (auto) 0.0 (0.0-0.2) /100WBC Sodium 138 (135-145) mmol/L Potassium 4.0 (3.3-5.1) mmol/L Chloride 105 (96-108) mmol/L Carbon Dioxide 23 (22-29) mmol/L Anion Gap 14 (12-20) BUN 6 L (9-16) mg/dL Creatinine 0.71 (0.5-1.4) mg/dL Estim Creat Clear Calc 133.5 Estimated GFR > 60 Random Glucose 94 (60-115) mg/dL Calcium 9.7 (8.4-10.2) mg/dL Total Bilirubin 0.6 (0.0-1.0) mg/dL AST 12 (5-31) U/L ALT 6 (0-31) U/L Alkaline Phosphatase 69 (39-117) U/L Troponin I High Sens < 2.7 (<3.5-17.0) ng/L Total Protein 7.6 (6.5-8.0) g/dL Albumin 4.2 (3.5-5.0) g/dL Independent Interpretation I performed an independent interpretation of an: EKG Interpretation: Normal sinus rhythm heart rate 73 beats per minute normal interval normal axis no acute ST-T changes no acute ischemia Discharge Plan Discharge Clinical Impression: Costalchondritis Patient Disposition: Home, Self-Care Instructions: Costochondritis (ED) Additional Instructions: Take ibuprofen for pain as prescribed follow up with pcp [facility] ibuprofeno para el dolor seg?n lo prescrito seguimiento con pcp Prescriptions: New ibuprofen 600 mg tablet 600 mg PO Q6H PRN (Reason: fever or pain) Qty: 30 0RF No Action sennosides [senna] 8.6 mg tablet 8.6 mg PO BEDTIME Qty: 14 0RF docusate sodium [Colace] 100 mg capsule 100 mg PO BID Qty: 20 0RF sumatriptan succinate 50 mg tablet 50 mg PO Q2-4H PRN (Reason: migraine headache) Qty: 10 0RF Rx Instructions: do not exceed 4 doses per 24 hrs Interventions: ED Discharge Assessment Last Done: 04/15/23 00:55 Discharge Date/Time: 04/15/23 00:55 Print Language: Khmer
== END 2023-04-15 00:55 | disposition home or self-care (01) ==
PROVIDERS: Emergency Provider Internal Medicine
DX: M94.0 Chondrocostal junction syndrome [Tietze] (principal); Z79.899 Other long term (current) drug therapy
CPT/HCPCS: 36415; 71046; 80053; 84484; 85027; 93005; 99283

== ENCOUNTER 2023-05-05 13:49 | Outpatient (AMB) | payer MEDICAID, SELFPAY ==
[2023-05-05 14:05] VITALS: BP 122/68; BMI 34.1
--- NOTE | 2023-05-05 14:05 | A.OFFVIS_ITS ---
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: Yes Farm Field Manager Language: Cooper Creole Farm Field Manager Name: [id number] and [id number] Accompanied by: Self / Same As Patient Allergies No Known Allergies Allergy (Verified 05/05/23 14:14) Medication List - Last Reconciled 05/05/23 by Chantel Corona CNM docusate sodium (Colace) 100 mg PO BID ibuprofen 600 mg PO Q6H PRN sennosides (senna) 8.6 mg PO BEDTIME sumatriptan succinate 50 mg PO Q2-4H PRN Is last menstrual period known: Yes Last menstrual period: 05/03/23 HPI 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 She is here with her 2 children. She lives in [place] she wants control and she was on Depo-Provera in the past the injection and she would like to get on it again she used it for 7 years after the of her 1st child and then she had her 2nd child and then she used it for another 3 years she had been off of it for a while but she restarted the injection in May of 2022 in [place] and she only had the 1 shot and her. Did go way during that time but it resumed 3 months later she had 2 periods this month 1 on April 12 for 3 days and the other 1 just started 2 days ago on May 03 and she would like to get the Depo again as soon as she can. There is a note in the chart from another provider that sites the patient as desiring a Nexplanon but she does not express interest in any other method today and I did inquire about that. She had taken over to get here today and much of the discussion after was around the logistics of how she will be able to case picker the Depo-Provera at her pharmacy of choice which is the [facility] and then come here as soon as possible her appointment today has been late LEEP in the day so her appointment to get the shot would need to be tomorrow because there would be enough time left today to arrange all of this and return she did notice that she gained weight when she was on the Depo-Provera but that is the only side effect that she noticed and I did talk to her about trying to make sure she eats well and gets plenty of exercise so that she does not gain any more weight on it I told her that I would prescribe enough Depo-Provera for her to continue on it for at least a year if she likes it but further discussion can take place at for future visits as well. She has not had a gynecological exam in a while and so we will arrange for that in the future as well. She does not have any other further questions. [facility] Medical History (Updated 05/05/23 @ 15:22 by Chantel Corona CNM) Migraine headache Surgical History (Updated 05/05/23 @ 14:23 by Tiara Boggs CMA) Hx of section Social History Household Members: Spouse and Children Alcohol intake: never Patient Tobacco Use Status: Never used Tobacco Female Reproductive History Menstrual Date of last menstrual period: 05/03/23 Total pregnancies: 4 Number of Living Children: 2 Ab spontaneous: 2 Physical Exam Vital Signs: Last Vital Signs BP 122/68 05/05/23 14:05 BMI result Body Mass Index 34.1 Results AMB Test Urine AMB Test Urine Negative Last Edit by Tiara Boggs CMA on 14:54 Assessment & Plan Assessment & Plan (1) control counseling: Code(s): Z30.09 - Encounter for other general counseling and advice on contraception (2) Initiation of Depo Provera: Comment: Rx being sent today to get 1st shot tomorrow on 3rd day of menses... Code(s): Z30.013 - Encounter for initial prescription of injectable contraceptive Plan Visit was conducted today with use of an press operator [employer] [id number], patient is recently moved here from [facility], via [place] and [place]. She is here with her 2 children. She lives in [place] she wants control and she was on Depo-Provera in the past the injection and she would like to get on it again she used it for 7 years after the of her 1st child and then she had her 2nd child and then she used it for another 3 years she had been off of it for a while but she restarted the injection in May of 2022 in [place] and she only had the 1 shot and her. Did go way during that time but it resumed 3 months later she had 2 periods this month 1 on April 12 for 3 days and the other 1 just started 2 days ago on May 03 and she would like to get the Depo again as soon as she can. There is a note in the chart from another provider that sites the patient as desiring a Nexplanon but she does not express interest in any other method today and I did inquire about that. She had taken over to get here today and much of the discussion after was around the logistics of how she will be able to case picker the Depo-Provera at her pharmacy of choice which is the [facility] and then come here as soon as possible her appointment today has been late LEEP in the day so her appointment to get the shot would need to be tomorrow because there would be enough time left today to arrange all of this and return she did notice that she gained weight when she was on the Depo-Provera but that is the only side effect that she noticed and I did talk to her about trying to make sure she eats well and gets plenty of exercise so that she does not gain any more weight on it I told her that I would prescribe enough Depo-Provera for her to continue on it for at least a year if she likes it but further discussion can take place at for future visits as well. She has not had a gynecological exam in a while and so we will arrange for that in the future as well. She does not have any other further questions. Orders: Orders AMB HCG Urine Test Today Z01.419 - Encounter for gynecological examination (general) (routine) without abnormal findings Medications: New medroxyprogesterone (Depo-Provera) 150 mg IM Q12W 1 mL 5RF Coding Level of Care Code New Pt Level 3 (28989) Diagnoses control counseling Z30.09 Initiation of Depo Provera Z30.013
== END 2023-05-05 15:15 | disposition home or self-care (01) ==
LOC: HO.HWS 13:49
PROVIDERS: Visit Provider Advanced Practice Midwife
DX: Z30.09 Encounter for other general counseling and advice on contraception (principal); Z30.013 Encounter for initial prescription of injectable contraceptive; Z01.419 Encounter for gynecological examination (general) (routine) without abnormal findings
CPT/HCPCS: 99203

== ENCOUNTER → 2023-05-05 13:49 | Outpatient (BNVA) | payer MEDICAID, SELFPAY | PROVIDERS: Visit Provider Advanced Practice Midwife | DX: Z30.013 Encounter for initial prescription of injectable contraceptive (principal); Z30.09 Encounter for other general counseling and advice on contraception; Z32.02 Encounter for pregnancy test, result negative | CPT/HCPCS: 81025; 99203 ==

== ENCOUNTER 2023-05-06 12:25 | Outpatient (AMB) | payer MEDICAID, SELFPAY ==
[2023-05-06 13:06] VITALS: BMI 33.4
--- NOTE | 2023-05-06 13:06 | AM.OFFVISNUR ---
Intake Vital Signs 05/06/23 13:06 Height 5 ft 7 in Weight 213 lb BMI 33.4 Intake Visit Reasons: DEPO Allergies No Known Allergies Allergy (Verified 05/05/23 14:14) Is last menstrual period known: Yes Post menopausal: No Patient : No Nursing Note Pt is here for initiation of Depo provera injection for BC. Pt reports her LMP was 05/03/23 and she saw Chantel 05/05/23 and had Negative test. No c/o. Pt tolerated injection well. She will return in 12 weeks for next injection. Pt verbalizes understanding and agrees with plan. No further questions. Office Procedures Depo Questionnaire If YES to any of the following questions, please consult a provider. Date of last menstrual period: 05/03/23 Menstrual pattern since last injection has been: Not Applicable test in office results: Negative Irregular bleeding?: No Breast lumps or other breast changes?: No Changes in weight or appetite?: No Depression or changes in mood?: No Abnormal hair growth or loss?: No Skin problems (rash, acne, discoloration)?: No Pain at the injection site?: No Headaches?: No Nervousness?: No Abdominal pain or cramping?: No Dizziness or nausea?: No Fatigue or weakness?: No Decrease in sexual drive?: No Chest pain or shortness of breath?: No Swelling in arms or legs?: No Form completed by?: Oyl Barahona RN Office Meds Depo-Provera Performing Provider: Chantel Corona CNM Administered by: Oly Barahona on 05/06/23 13:09 Dose Route Admin Location Lot Number Expiration Date NDC Chemical Processing Supervisor 150 mg IM [id number] 10/09/24 87504-420-90 [facility] Coding Level of Care Code Established Pt Est Pt Level 1 (25588) Patient Type Established History Problem Focused Medical Decision Making Straight Forward Diagnoses Time Spent (min) 11 Assessment & Plan Assessment & Plan Orders: Orders AMB Medroxyprogesterone Injection Patient Supplied Today Z30.013 - Encounter for initial prescription of injectable contraceptive
== END 2023-05-06 13:03 | disposition home or self-care (01) ==
LOC: HO.HWS 12:25
PROVIDERS: Visit Provider Advanced Practice Midwife
DX: Z30.013 Encounter for initial prescription of injectable contraceptive (principal)

== ENCOUNTER → 2023-05-06 12:25 | Outpatient (BNVA) | payer MEDICAID, SELFPAY | PROVIDERS: Visit Provider Advanced Practice Midwife | DX: Z30.013 Encounter for initial prescription of injectable contraceptive (principal) | CPT/HCPCS: 96372; 99211; J1050 ==

== ENCOUNTER 2023-06-08 09:11 | Outpatient (REF) | payer MEDICAID, SELFPAY ==
--- NOTE | ~2023-06-08 | US_ITS ---
EXAMINATION: MM DIAGNOSTIC DIGITAL BREAST TOMOSYNTHESIS, BILATERAL US BREAST LIMITED, RIGHT MAMMOGRAPHY: CLINICAL INFORMATION: Patient complaining of right breast pain retroareolar and lateral. Patient states radiates to her back and neck . Bilateral screening. COMPARISON: Mammography: None. Baseline exam. TECHNIQUE: Digital breast tomosynthesis is performed in both the craniocaudal and mediolateral oblique views along with computer-aided detection (CAD). Synthesized 2D images are generated from the tomosynthesis. FINDINGS: The breasts are heterogeneously dense, which may obscure small masses (ACR BI-RADS breast composition Category c). There are bilateral low-density circumscribed masses in both breasts, statistically benign and representing multiple cysts and/or fibroadenomas. These do not require further workup. At least one calcified fibroadenoma is present in the right breast slightly lower outer quadrant, middle one third. There is a small circumscribed lymph node with a fatty notch in the upper outer quadrant right breast periareolar region. There are no suspicious masses, suspicious grouped calcifications, or areas of architectural distortion in either breast. There is no mammographic correlate to the patient's complaint of right-sided breast pain in the retroareolar and lateral location. ULTRASOUND: CLINICAL INFORMATION: Patient complaining of right breast pain retroareolar and lateral. Patient states radiates to her back and neck . COMPARISON: None TECHNIQUE: Targeted sonographic evaluation was performed using a high frequency linear transducer. Selected archived documentation. FINDINGS: RIGHT BREAST: There is a mixture of fatty and fibroglandular tissue. No suspicious mass is seen. There is no pathologic acoustic shadowing. There is no sonographic correlate to the regions of right breast pain as reported by the patient in the retroareolar or 4:00 locations. US/US breast RT limited mamm only IMPRESSION: No findings suspicious for malignancy in either breast. No ultrasonographic or mammographic correlate to the patient's complaint of right breast pain. Recommend clinical management. OVERALL ASSESSMENT: Mammography: BI-RADS 2 - Benign Findings Ultrasound: BI-RADS 2 - Benign Findings RECOMMENDATION: Mammo at 40 or earlier if clinically needed Results were provided to the patient at time of visit by the technologist. This patient's information was entered into a reminder system with a target due date for their next mammogram.
== END 2023-06-08 09:12 | disposition home or self-care (01) ==
LOC: HO.MAMMO 09:11
PROVIDERS: PCP Family Medicine; Visit Provider Family Medicine
DX: N64.4 Mastodynia (principal)
CPT/HCPCS: 76642; 77062; 77066

== ENCOUNTER → 2023-06-08 09:30 | Outpatient (BNV) | payer MEDICAID, SELFPAY | PROVIDERS: PCP Family Medicine; Visit Provider Radiology Diagnostic Radiology | DX: N64.4 Mastodynia (principal) | CPT/HCPCS: 76642; 77062; 77066 ==

== ENCOUNTER 2023-06-17 08:29 | Emergency (ER) | payer MEDICAID, SELFPAY ==
--- NOTE | 2023-06-17 08:49 | ED.BACK ---
HPI - Back Pain/Injury General Chief Complaint: Back Pain/Injury Stated Complaint: Back Pain Time Seen by Provider: 06/17/23 08:49 Source: patient Mode of arrival: ambulatory Limitations: no limitations History of Present Illness HPI Narrative: 33 yo [place] Creole female presents to the ER for evaluation of right upper back pain that started a couple of days ago. She woke up with the pain. she states is on the inside of her right shoulder blade. It is worse with deep breaths and movement of the right upper extremity. No neck pain or headache. No radiation of the pain. No numbness or tingling in the right upper extremity. No chest pain or shortness of breath. MD elicited complaint: back pain Onset (ago): day(s) Timing: progressively worsening Severity: moderate Quality: aching and spasming Location: right upper back Radiation: none Exacerbating factors: none Relieving factors: movement Context: unknown Associated symptoms: denies other symptoms Work related injury: No Related Data Previous Rx's Medication Instructions Recorded docusate sodium 100 mg capsule 100 mg PO BID #20 caps 03/31/23 (Colace) sennosides 8.6 mg tablet (senna) 8.6 mg PO BEDTIME #14 tabs 03/31/23 sumatriptan succinate 50 mg tablet 50 mg PO Q2-4H PRN migraine 04/13/23 headache #10 tabs ibuprofen 600 mg tablet 600 mg PO Q6H PRN fever or pain 04/15/23 #30 tabs medroxyprogesterone 150 mg/mL 150 mg IM Q12W #1 mL 05/05/23 intramuscular suspension (Depo-Provera) cyclobenzaprine 10 mg tablet 10 mg PO TID PRN muscle spasm #14 06/17/23 tabs ibuprofen 600 mg tablet 600 mg PO Q8H PRN pain #14 tabs 06/17/23 lidocaine 5 % topical patch 1 patch topical DAILY #15 ea 06/17/23 Allergies Allergy/AdvReac Type Severity Reaction Status Date / Time No Known Allergies Allergy Verified 05/05/23 14:14 Review of Systems Review of Systems: Yes all other systems are reviewed and are negative PMFSH Past Medical History Medical History (Updated 06/17/23 @ 10:33 by JAMES Henson) Migraine headache Surgical History (Updated 05/05/23 @ 14:23 by Tiara Boggs CMA) Hx of section Social History Social History Household Members: Spouse and Children Alcohol intake: never Patient Tobacco Use Status: Never used Tobacco Advance Directives: No Advance Directives Information Provided: Yes Physical Exam Vital Signs: Vital Signs: Last Vital Signs Temp 98.6 F 06/17/23 09:03 Pulse 82 06/17/23 09:03 Resp 18 06/17/23 09:03 BP 115/80 06/17/23 09:03 Pulse Ox 100 06/17/23 09:03 BMI result Body Mass Index 34.0 Appearance: Alert. Oriented X3. No acute distress. HEENT: normal inspection CVS: Normal heart rate and rhythm. Pulses normal. Respiratory: No respiratory distress. Skin: Skin warm and dry. Normal skin color. Normal skin turgor. No rashes. back: Normal inspection. Normal range of motion of the spine. There is soft tissue tenderness medial to the scapula and in the upper trapezius with palpable muscle spasm. No midline tenderness. Extremities: Normal inspection x4, normal range of motion of the right upper extremity and shoulder. Neuro: Oriented X 3. No motor deficit. No sensory deficit. Equal and symmetrical strength throughout Medical Decision Making Medical Decision Making MDM Narrative: 33 yo [place] Creole female Presenting to the ER for evaluation of non-traumatic right upper back pain for the last couple of days. No radiation of the pain. No chest pain or shortness of breath. Physical exam is consistent with muscle strain and spasm with palpable spasm on exam. Will start her on anti-inflammatories and muscle relaxers. She does have a PCP she can follow up with for further evaluation and treatment. Occ Med Physician Jacqui used to discussed diagnosis, treatment, return precautions and importance of follow-up. Patient expressed understanding is stable for discharge home Differential Diagnosis Differential Diagnoses: The differential diagnosis associated with the presentation includes muscle strain, muscle spasm, bursitis, arthritis, doubt any referred pain from the gallbladder External Record Review External record reviewed: Prior outpatient labs Tests considered The following testing was considered but not selected: considered basic lab workup and a x-ray of the shoulder however exam was consistent with muscle strain and spasm Prescription Management I considered prescription management with: Pain Medication Critical Care Time Critical Care Time Critical Care Time: No Discharge Plan Discharge Clinical Impression: Muscle spasm Patient Disposition: Home, Self-Care Instructions: Muscle Spasm (ED) Additional Instructions: take the prescribed medications as directed follow up with your doctor for further evaluation and treatment If you develop new or worsening symptoms call 911 or come back to the ER for further evaluation. hernando diaz yo preskri ervin yo mande yo swiv dokt? ou hollie plis evalyasyon ak tretman Si w devlope nouvo sent?m oswa sent?m yo jacinto pi grav, rele 911 oswa retounen nan ER la hollie plis evalyasyon. Prescriptions: New cyclobenzaprine 10 mg tablet 10 mg PO TID PRN (Reason: muscle spasm) Qty: 14 0RF ibuprofen 600 mg tablet 600 mg PO Q8H PRN (Reason: pain) Qty: 14 0RF lidocaine 5 % adhesive patch,medicated 1 patch topical DAILY Qty: 15 0RF Rx Instructions: leave on most painful area for up to 12 hrs No Action sennosides [senna] 8.6 mg tablet 8.6 mg PO BEDTIME Qty: 14 0RF docusate sodium [Colace] 100 mg capsule 100 mg PO BID Qty: 20 0RF sumatriptan succinate 50 mg tablet 50 mg PO Q2-4H PRN (Reason: migraine headache) Qty: 10 0RF Rx Instructions: do not exceed 4 doses per 24 hrs ibuprofen 600 mg tablet 600 mg PO Q6H PRN (Reason: fever or pain) Qty: 30 0RF medroxyprogesterone [Depo-Provera] 150 mg/mL suspension 150 mg IM Q12W Qty: 1 5RF Interventions: ED Discharge Assessment Last Done: 06/17/23 10:58 Discharge Date/Time: 06/17/23 10:58
[2023-06-17 09:03] VITALS: BP 115/80; PULSE 82; RESP 18; TEMP 37; O2SAT 100; BMI 34.0
== END 2023-06-17 10:58 | disposition home or self-care (01) ==
PROVIDERS: Emergency Provider Emergency Medicine
DX: M62.830 Muscle spasm of back (principal); M54.6 Pain in thoracic spine
CPT/HCPCS: 99282; 99283

== ENCOUNTER 2023-06-20 10:57 | Outpatient (AMB) | payer MEDICAID, SELFPAY ==
--- NOTE | 2023-06-20 11:33 | MHC.OFFVIS ---
Intake Vital Signs 06/20/23 11:34 Height 5 ft 6.54 in Weight 213 lb 13.574 oz BMI 34.0 BP 108/76 Blood Pressure Location Lt brachial Position Sitting Pulse 75 Pulse Source Pulse Oximeter Temp 97.3 F Temp Source Skin Pulse Oximetry (%) 100 Oxygen Delivery Method Room Air Intake Visit Reasons: +DEAN [employer] F[employer] Required: Yes [employer] F[employer] Language: Vietnamese [place] [employer] Founder Name: Jose [id number] Information Interpreted: clinical only Accompanied by: Self / Same As Patient Allergies No Known Allergies Allergy (Verified 06/20/23 11:38) Medication List - Last Reconciled 06/20/23 by Omi Jay MD bismuth subcit B-yichxmgtw-yhu 140-125-125 mg (Pylera) 3 caps PO QID cyclobenzaprine 10 mg PO TID PRN diclofenac sodium 1% 2 grams topical docusate sodium (Colace) 100 mg PO BID ergocalciferol (vitamin D2) 1,250 mcg PO QWEEK ibuprofen 600 mg PO Q8H PRN lidocaine 5% 1 patch topical DAILY medroxyprogesterone (Depo-Provera) 150 mg IM Q12W melatonin 10 mg PO BEDTIME PRN omeprazole 40 mg PO sennosides (senna) 8.6 mg PO BEDTIME sumatriptan succinate 50 mg PO Q2-4H PRN HPI HPI Comments History of Present Illness Details Patient presents for evaluation of chest pain and positive DEAN. She speaks Creole so we use the iPad translating service. She relates the onset of fairly severe sternal pain back in October. This was evaluated in the emergency room and felt to be chest wall pain. She was given the diagnosis of costochondritis. She has been treated with cyclobenzaprine if needed, ibuprofen p.r.n., and lidocaine patches. The pains do seem to come and go. When they are present they cause pleuritic pain. She does not recall any prior history of any lung disease or chest wall injury. She does have difficulty at times swallowing. She seems to say that the food gets stuck. This has been helped a bit with the use of omeprazole for the past 6 months. [facility] Medical History (Updated 06/20/23 @ 13:19 by Omi Jay MD) Migraine headache Surgical History Hx of section Social History (Updated 06/20/23 @ 11:41 by CALLI Mendoza) Household Members: Spouse and Children Alcohol intake: current Alcohol intake frequency: former alcohol drinker Patient Tobacco Use Status: Never used Tobacco Current occupational status: unemployed Female Reproductive History Menstrual Total pregnancies: 5 Number of Living Children: 2 Ab spontaneous: 3 Review of Systems Const Details: A few lb weight loss in the past summer. Negative for appetite change, the the fever, chills, malaise and fatigue Eyes Details: Negative for vision change, dry eyes,headaches and dizziness ENT Details: Negative for hearing change, tinnitus, oral ulcer, nose bleeds and oral dryness. Card Details: Intermittent pleuritic chest pain as noted above. Negative palpitations, edema and syncope Resp Details: Negative for SOB, cough and wheezing GI Details: Sometimes she feels the food gets stuck when she swallows. This was helped only marginally with the addition of omeprazole. Negative indigestion/heartburn, nausea, abdominal pain, bowel changes, diarrhea, constipation and bloody stool. Details: Negative for dysuria, hematuria, nocturia, decreased force/flow and genital discharge Skin/Breast Details: Negative for itching, rash, hives, Raynaud's symptoms, sun sensitivity, and skin cancer Neuro Details: Negative for epilepsy, palsy, stroke, changes in speech, tingling and weakness Psych Details: Negative for anxiety, depression and stress Endo Details: Negative for polyuria and polydypsia Matthew/Lymph Details: Negative for excessive bruising or bleeding. Physical Exam Vital Signs: Last Vital Signs Temp 97.3 F 06/20/23 11:34 Pulse 75 06/20/23 11:34 BP 108/76 06/20/23 11:34 Pulse Ox 100 06/20/23 11:34 Oxygen Delivery Method Room Air 06/20/23 11:34 BMI result Body Mass Index 34.0 APPEARANCE: Patient in no acute distress EYES no redness, pupils equal and reactive to light, eyelids normal EARS: External ear normal, canal clear and tympanic membrane normal. NOSE/SINUS: Airflow through both nares, no nasal discharge, no bleeding THROAT: Oral mucosa moist, no ulcerations NECK: No thyromegaly or masses, no adenopathy, trachea midline. HEART: Regulrar rhythm, S1-S2 heard, no murmurs, rubs or gallops. LUNG: Clear to percussion and auscultation ABD: Normal bowel sounds, no organomegaly, masses or tenderness. EXTREMITIES: No edema, no calf tenderness, normal peripheral pulses. NEURO: Oriented and alert x3. No focal weakness. Reflexes symmetric. Gait normal. SKIN: No inflammatory or neoplastic lesions. Normal color and turgor JOINT EXAM:.?? Cervical Spine:.? Full range of motion without pain; no tenderness. Thoracic Spine:.? No scoliosis.? No tenderness on palpation. Lumbar Spine:.? Alignment normal.? Full range of motion without pain, no tenderness. Chest Wall: There is ccog-hb-cfadeveq tenderness at the sternoclavicular joints and along the whole length of the sternu. The costosternal junctions are also tender. None of these areas have any swelling, increased warmth or erythema. Hands:.? Normal pain-free range of motion without tenderness, swelling, increased warmth or erythema. Able to make a full fist and has a good steel erector strength. Wrists:.? Normal pain-free range of motion without tenderness, swelling, increased warmth or erythema. Elbows:. Normal pain-free range of motion without tenderness, swelling, increased warmth or erythema. Shoulders:.?? Full range of motion without pain. No tenderness, weakness, swelling, increased warmth or erythema. Hips:.? Full range of motion without pain. Hip bursa:.? No tenderness. Knees:.?? Normal pain-free range of motion without tenderness, swelling, increased warmth or erythema.? There is no effusion or crepitation Ankles:.? Normal pain-free range of motion without tenderness, swelling, increased warmth or erythema. Feet:.? Normal pain-free range of motion without tenderness, swelling, increased warmth or erythema. Tender points:.? No tenderness to digital palpation at the occiput, trapezius, second rib, lateral epicondyle, knees, greater trochanter and gluteal area bilaterally. ? Results Reviewed Results Reviewed: [address] [address] XRay Report Signed Patient: Ananya Nair MR#: [id number] : 1990 Acct:[id number] Age/Sex: 33 / F ADM Date: 04/14/23 Ordering Physician: Generic ED Physician Date of Service: 04/14/23 Procedure(s): XR chest 2V Accession Number(s): [id number] cc: Generic ED Physician~ EXAMINATION: XR CHEST CLINICAL INFORMATION: Chest pain COMPARISON: None available. TECHNIQUE: 2 views of the chest were obtained. FINDINGS: The lungs are well expanded. There is no focal consolidation, edema, or effusion. No pneumothorax. The cardiomediastinal silhouette is within normal limits. No acute osseous abnormality. XR/XR chest 2V IMPRESSION: Clear lungs. Dictated By: Yung Case MD Lab work from PCP office: DEAN positive at 1:80, TSH normal, ESR 9, CBC normal Assessment & Plan Assessment & Plan (1) Chest pain: Code(s): R07.9 - Chest pain, unspecified (2) Dysphagia: Code(s): R13.10 - Dysphagia, unspecified Qualifiers: Dysphagia type: esophageal phase Qualified Code(s): R13.19 - Other dysphagia (3) DEAN positive: Code(s): R76.8 - Other specified abnormal immunological findings in serum Plan Patient has had a number of months now of a tender chest wall consistent with some costochondritis. It is slowly improving but she still is quite symptomatic at times. There is some dysphagia and sticking of food suggesting esophageal dysfunction. There has been some slight recent weight loss of unclear etiology. The DEAN is positive but she really does not have other signs of an active inflammatory arthritis or autoimmune rheumatic disease. I will check into this further with some other blood work and urine protein. Given the complaint of dysphagia which could suggest some esophageal or substernal pathology I think she should have a GI evaluation. We will get back to her with the results of her studies. Orders: Orders Erythrocyte Sedimentation Rate Today R76.8 - Other specified abnormal immunological findings in serum Anti DNA DS Antibody Today R76.8 - Other specified abnormal immunological findings in serum Complement C3 Today R76.8 - Other specified abnormal immunological findings in serum Comprehensive Met. Panel Today R76.8 - Other specified abnormal immunological findings in serum Anti Extractable Nuclear Ag Today R76.8 - Other specified abnormal immunological findings in serum Complement C4 Today R76.8 - Other specified abnormal immunological findings in serum C Reactive Protein Today R76.8 - Other specified abnormal immunological findings in serum Protein Creatinine Ratio, Ur Today R76.8 - Other specified abnormal immunological findings in serum Coding Level of Care Code New Pt Level 3 (30251) Diagnoses Chest pain R07.9 Esophageal dysphagia R13.19 Dysphagia type: esophageal phase DEAN positive R76.8
[2023-06-20 11:34] VITALS: BP 108/76; PULSE 75; TEMP 36.3; O2SAT 100; BMI 34.0
== END 2023-06-20 12:13 | disposition home or self-care (01) ==
PROVIDERS: PCP Internal Medicine; Referring Provider Internal Medicine; Visit Provider Internal Medicine Rheumatology
DX: R07.9 Chest pain, unspecified (principal); R13.19 Other dysphagia; R76.8 Other specified abnormal immunological findings in serum
CPT/HCPCS: 99203

== ENCOUNTER → 2023-06-20 10:57 | Outpatient (BNVA) | payer MEDICAID, SELFPAY | PROVIDERS: PCP Internal Medicine; Referring Provider Internal Medicine; Visit Provider Internal Medicine Rheumatology ==

== ENCOUNTER 2023-06-20 12:16 | Outpatient (REF) | payer MEDICAID, SELFPAY ==
[2023-06-20 13:40] LABS: Alanine Aminotransferase 6 U/L (0-31); Albumin Level 4.1 g/dL (3.5-5.0); Alkaline Phosphatase 60 U/L (39-117); Anion Gap 10 (12-20); Aspartate Amino Transferase 13 U/L (5-31); Bilirubin Total 0.5 mg/dL (0.0-1.0); Blood Urea Nitrogen 12 mg/dL (9-16); C Reactive Protein 0.15 mg/dL (< or = 0.50); Calcium 9.6 mg/dL (8.4-10.2); Carbon Dioxide 27 mmol/L (22-29); Chloride 107 mmol/L (96-108); Estimated Glomerular Filt Rate > 60; Glucose Random 82 mg/dL (60-115); Sodium 140 mmol/L (135-145); Total Protein 7.4 g/dL (6.5-8.0)
[2023-06-20 13:57] LABS: Creatinine Urine 108.63 mg/dL; Total Protein Urine Random < 7 mg/dL (<12)
[2023-06-20 14:32] LABS: Erythrocyte Sedimentation Rate 12 MM/HR (0-20)
[2023-06-21 13:38] LABS: Complement C3 120 mg/dL (83-193)
[2023-06-22 16:58] LABS: Anti DNA DS Antibody <1 IU/mL; SM/Ribonucleoprotein Ab <1.0 NEG AI (<1.0 NEG); Smith Protein <1.0 NEG AI (<1.0 NEG)
== END 2023-06-20 12:17 | disposition home or self-care (01) ==
LOC: HO.10HDL 12:16
PROVIDERS: Visit Provider Internal Medicine Rheumatology
DX: R76.8 Other specified abnormal immunological findings in serum (principal)
CPT/HCPCS: 36415; 80053; 82570; 84156; 85652; 86140; 86160; 86225; 86235

== ENCOUNTER 2023-08-01 09:28 | Outpatient (AMB) | payer MEDICAID, SELFPAY ==
--- NOTE | 2023-08-01 09:38 | A.OFFVIS_ITS ---
Intake Vital Signs 08/01/23 09:45 Height 5 ft 6 in Weight 212 lb BMI 34.2 BP 141/67 H Blood Pressure Location Lt brachial Position Sitting Pulse 96 Intake Visit Reasons: Dysphagia Intake Note: Patient new consult for dysphagia. Patient cc: swallowing food solid, abdominal pain with bloating, and acid reflex with burning sensation, denies any other GI issues. [employer] Fixture Builder Required: Yes Jig And Fixture Builder Name: Rk [id number] Accompanied by: Self / Same As Patient Allergies No Known Allergies Allergy (Verified 08/03/23 15:02) Medication List - Last Reconciled 08/01/23 by Cinthya Pa PA-C bismuth subcit Z-yfwwvovgy-hux 140-125-125 mg (Pylera) 3 caps PO QID cyclobenzaprine 10 mg PO TID PRN diclofenac sodium 1% 2 grams topical docusate sodium (Colace) 100 mg PO BID ergocalciferol (vitamin D2) 1,250 mcg PO QWEEK ibuprofen 600 mg PO Q8H PRN lidocaine 5% 1 patch topical DAILY medroxyprogesterone (Depo-Provera) 150 mg IM Q12W melatonin 10 mg PO BEDTIME PRN omeprazole 40 mg PO sennosides (senna) 8.6 mg PO BEDTIME sumatriptan succinate 50 mg PO Q2-4H PRN HPI HPI Comments History of Present Illness Details 33-year-old female referred with dysphag ia for > 6 months. C/o heartburn, taking omeprazole 40 mg helps with the acid-has difficulty swallowing- foods like rice. Appetite is otherwise good- Bowels are normal- no issues No respiratory or cardiac issues [facility] Medical History (Updated 08/01/23 @ 09:57 by Cinthya Pa PA-C) Migraine headache Surgical History Hx of section Social History Household Members: Spouse and Children Alcohol intake: current Alcohol intake frequency: former alcohol drinker Patient Tobacco Use Status: Never used Tobacco Current occupational status: unemployed Review of Systems Const All systems reviewed & are unremarkable except as noted in HPI and below ENT Reports dysphagia Card Details: Chest wall discomfort follows with Rheumatology Denies chest pain and Denies dyspnea Resp Denies dyspnea GI Denies abdominal pain, Reports dysphagia, Denies nausea and Denies vomiting Physical Exam Vital Signs: Last Vital Signs Pulse 96 08/01/23 09:45 BP 141/67 H 08/01/23 09:45 BMI result Body Mass Index 34.2 Const General: comfortable Orientation/consciousness: patient oriented x3 Limitations: language barrier Eyes Sclerae: sclerae normal Resp Effort & Inspection: normal respiratory effort and able to speak in complete sentences Auscultation: clear to auscultation bilaterally, no rales, no rhonchi and no wheezes Cardio Rate: regular rate Rhythm: regular rhythm Heart sounds: S1 normal heart sound present and S2 normal heart sound present GI Palpation (GI): Soft to palpation and nontender Auscultation: normal bowel sounds Skin General skin exam: no rashes or lesions noted Neuro General: patient oriented x3 Extrem General: Yes full ROM Psych Appearance: grossly normal Mental Status: mental status grossly normal Affect: Labile affect present Attitude: cooperative Thought content: Normal thought content present Assessment & Plan Assessment & Plan (1) Dysphagia: Code(s): R13.10 - Dysphagia, unspecified Qualifiers: Dysphagia type: esophageal phase Qualified Code(s): R13.19 - Other dysphagia Plan: BS/ EGD poss dil will get BS- sooner- due to back log (2) Heartburn: Code(s): R12 - Heartburn Plan: continue omeprazole 40mg Avoid culprits Plan 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
[2023-08-01 09:45] VITALS: BP 141/67; PULSE 96; BMI 34.2
== END 2023-08-01 11:52 | disposition home or self-care (01) ==
PROVIDERS: PCP Internal Medicine; Visit Provider Physician Assistant
DX: R13.19 Other dysphagia (principal); R12 Heartburn
CPT/HCPCS: 99204

== ENCOUNTER → 2023-08-01 09:28 | Outpatient (BNVA) | payer MEDICAID, SELFPAY | PROVIDERS: PCP Internal Medicine; Visit Provider Physician Assistant | DX: R13.19 Other dysphagia (principal); R12 Heartburn | CPT/HCPCS: 99212 ==

== ENCOUNTER 2023-08-03 14:42 | Outpatient (AMB) | payer MEDICAID, SELFPAY ==
--- NOTE | 2023-08-03 14:47 | MHC.OFFVIS ---
Intake Vital Signs 08/03/23 14:58 Height 5 ft 6 in Weight 211 lb 10.3 oz BMI 34.2 BP 120/74 Intake Visit Reasons: control Intake Note: Patient here to switch depo for control pills Clinical Field Specialist Required: Yes Clinical Field Specialist Language: Cooper Michel Clinical Field Specialist Name: Tin [id number] Information Interpreted: non-clinical & clinical Accompanied by: Self / Same As Patient Allergies No Known Allergies Allergy (Verified 08/03/23 15:02) Medication List - Last Reconciled 08/03/23 by Chantel Corona CNM bismuth subcit K-dkvlblvts-wwb 140-125-125 mg (Pylera) 3 caps PO QID cyclobenzaprine 10 mg PO TID PRN diclofenac sodium 1% 2 grams topical docusate sodium (Colace) 100 mg PO BID ergocalciferol (vitamin D2) 1,250 mcg PO QWEEK ibuprofen 600 mg PO Q8H PRN lidocaine 5% 1 patch topical DAILY melatonin 10 mg PO BEDTIME PRN omeprazole 40 mg PO sennosides (senna) 8.6 mg PO BEDTIME sumatriptan succinate 50 mg PO Q2-4H PRN Is last menstrual period known: No (depo) HPI control HPI Details (the patient was seen here for control consult on 05/05. The note had said she was interested in the Nexplanon but she said she wanted Depo. She came 728 received Depo-Provera shot as she would have been due to get her Depo-Provera on July 29 today's 08/03 so it is 12 weeks and 5 sevens today). Through translation the patient stated that she wants to get her. Again and she like to getting her periods so she wants to go off the Depo-Provera and go back to taking control pills also she thinks that the Depo made her headaches worse. But in any case she just wants to get her. Again she liked having her. She definitely still needs control. [facility] Medical History (Updated 08/03/23 @ 16:03 by Chantel Corona CNM) Migraine headache Surgical History Hx of section Social History Household Members: Spouse and Children Alcohol intake: current Alcohol intake frequency: former alcohol drinker Patient Tobacco Use Status: Never used Tobacco Current occupational status: unemployed Physical Exam Vital Signs: Last Vital Signs BP 120/74 08/03/23 14:58 BMI result Body Mass Index 34.2 Assessment & Plan Assessment & Plan (1) control counseling: Comment: Wishes to discontinue Depo-Provera because of lack of menses and start on OCPs prescribing norethindrone only OCPs 08/03/2023 1 q.day Code(s): Z - Encounter for other general counseling and advice on contraception Plan Discussed progestin only control pills because she is 33 years old and because of her history of headaches. Patient may switched today to the norethindrone only control pills I discussed clearly how to take them 1 pill every single day at the same time every day she may pick them up from the [facility] this afternoon or 1st thing tomorrow morning. I told her if she ever skips a pill or forgets she should use condoms for the rest of the month. I told her I do not know when her periods will return to normal but eventually they will because she had normal periods before hand. She also wants to schedule an exam and Pap smear that had been requested at the last visit but somehow it did not get scheduled so as she is leaving this off it gets I walked the audio engineer tablet out to the front end engineer so that can be scheduled at her discretion. She had her little girl with her throughout the visit and her older boy I was in the waiting room. She said at the end she had no further questions. We will see her for her annual and pill check and Pap smear when it can be scheduled. Medications: New norethindrone (contraceptive) 0.35 mg PO DAILY 84 tabs 4RF Coding Level of Care Code Est Pt Level 3 (29022) Diagnoses control counseling Z
[2023-08-03 14:58] VITALS: BP 120/74; BMI 34.2
== END 2023-08-03 15:58 | disposition home or self-care (01) ==
LOC: HO.HWS 14:42
PROVIDERS: PCP Internal Medicine; Visit Provider Advanced Practice Midwife
DX: Z30.09 Encounter for other general counseling and advice on contraception (principal)
CPT/HCPCS: 99213

== ENCOUNTER → 2023-08-03 14:42 | Outpatient (BNVA) | payer MEDICAID, SELFPAY | PROVIDERS: PCP Internal Medicine; Visit Provider Advanced Practice Midwife | DX: Z30.09 Encounter for other general counseling and advice on contraception (principal) | CPT/HCPCS: 99212 ==

== ENCOUNTER 2023-09-09 11:56 | Day surgery (SDC) | payer MEDICAID, SELFPAY ==
[2023-09-07 15:10] VITALS: BMI 34.4
--- NOTE | 2023-09-07 15:32 | P.CONAN_ITS ---
Documented by User: Letty Ryan NP 09/07/23 15:32 HPI - Anesthesia Eval Consult details Narrative: 33yo F for Colonoscopy PMFSH Active Problems Active Problems: All Active Problems (Updated 09/07/23 @ 15:08 by Em Matthews RN) Heartburn (Acute) Dysphagia (Acute) Chest pain (Acute) Initiation of Depo Provera (Acute) control counseling (Acute) DEAN positive (Acute) Migraine headache (Acute) Past Medical History Medical History GERD (gastroesophageal reflux disease) Dysphagia Heartburn Migraine headache Surgical History Surgical History Hx of section Social History Social History Household Members: Spouse and Children Alcohol intake: current Alcohol intake frequency: former alcohol drinker Patient Tobacco Use Status: Never used Tobacco Advance Directives: No Advance Directives Information Provided: Yes Current occupational status: unemployed Meds Allergies Allergy/AdvReac Type Severity Reaction Status Date / Time No Known Allergies Allergy Verified 09/09/23 13:02 Home Medications Medication Instructions Recorded Confirmed Last Taken Type bismuth subcit K 140 3 cap PO QID 06/17/23 08/03/23 Unknown History mg-metronidazole 125 mg-tetracycline 125 mg cap (Pylera) diclofenac sodium 1 % topical gel 2 g topical 06/17/23 08/03/23 Unknown History ergocalciferol (vitamin D2) 1,250 1,250 mcg PO QWEEK 06/17/23 08/03/23 Unknown History mcg (50,000 unit) capsule melatonin 5 mg tablet 10 mg PO BEDTIME PRN insomnia 06/17/23 09/07/23 Unknown H istory omeprazole 20 mg capsule,delayed 40 mg PO DAILY 06/17/23 09/07/23 Unknown History release Exam Height,Weight and Vital Signs: Height 5 ft 6 in Weight 96.615 kg Assessment and Plan Assessment Anesthesia Assessment: Chart Reviewed Documented by User: Alanis Bryant MD 09/09/23 13:02 [facility] Past Medical History Medical History GERD (gastroesophageal reflux disease) Dysphagia Heartburn Migraine headache Surgical History Surgical History Hx of section History of Problems with Anesthesia: No Social History Social History Household Members: Spouse and Children Alcohol intake: current Alcohol intake frequency: former alcohol drinker Patient Tobacco Use Status: Never used Tobacco Advance Directives: No Advance Directives Information Provided: Yes Current occupational status: unemployed Meds Allergies Allergy/AdvReac Type Severity Reaction Status Date / Time No Known Allergies Allergy Verified 09/09/23 13:02 Home Medications Medication Instructions Recorded Confirmed Last Taken Type bismuth subcit K 140 3 cap PO QID 06/17/23 08/03/23 Unknown History mg-metronidazole 125 mg-tetracycline 125 mg cap (Pylera) diclofenac sodium 1 % topical gel 2 g topical 06/17/23 08/03/23 Unknown History ergocalciferol (vitamin D2) 1,250 1,250 mcg PO QWEEK 06/17/23 08/03/23 Unknown History mcg (50,000 unit) capsule melatonin 5 mg tablet 10 mg PO BEDTIME PRN insomnia 06/17/23 09/07/23 Unknown History omeprazole 20 mg capsule,delayed 40 mg PO DAILY 06/17/23 09/07/23 Unknown History release Exam Airway Mallampati Class: II TM Dist: >3cm Neck ROM: Full Loose/Missing/Broken Teeth: No Heart: RRR Lungs: CTA Assessment and Plan Assessment Anesthesia Assessment: Anesthesia Plan Discussed Final Anesthetic Review History of Problems with Anesthesia: No NPO: Yes ASA Class: II Final Preanesthetic Review: Meds/Allgs Chart Reviewed, Consent Obtained/Reviewed and Anes Risks/Benef Reviewed Patient Risk: Low Procedure Risk: Low Anesthetic Plan Anesthetic Plan: MAC: Disposition: Standard PACU
[2023-09-09 12:31] LABS: UPreg QC Valid YES; Urine Pregnancy NEGATIVE (NEGATIVE)
[2023-09-09 12:36] VITALS: BP 127/81; PULSE 102; RESP 18; TEMP 36.6; O2SAT 100
[2023-09-09] MEDS: Lactated Ringers 1,000 ML 100 ML IVCONT (12:39)
--- NOTE | 2023-09-09 13:01 | PC.NURSE ---
2 IV attempts by travis mccarty rn. insertion by author.
[2023-09-09 13:30] VITALS: BP 105/49; PULSE 88; RESP 16; TEMP 36.1; O2SAT 100
--- NOTE | 2023-09-09 13:31 | MHC.SHP ---
Pre-Procedural Eval Section A Date of Service: 09/09/23 The patient is an INPATIENT: No Changes since office visit: No Cold of Flu in the past 2 weeks, No New Medical Problems, No Changes in Medication and No Patient answered all questions The History & Physical has been completed within 30 days and I have reviewed it.: Yes Section B Chief Complaint: Hemorrhage of anus and rectum Allergies: Allergies Allergy/AdvReac Type Severity Reaction Status Date / Time No Known Allergies Allergy Verified 09/09/23 13:02 Plan I have reviewed the history and physical and performed a pertinent physical examination on my patient. No changes have occurred unless specified. Time Spent With Patient Time: Total time managing care of this patient today ____ minutes.
[2023-09-09 13:45] VITALS: BP 117/54; PULSE 79; RESP 14; O2SAT 100
[2023-09-09 14:00] VITALS: BP 110/61; PULSE 73; RESP 16; TEMP 36.8; O2SAT 100
--- NOTE | 2023-09-09 23:46 | OP_ITS ---
DATE OF SERVICE: 09/09/2023 SURGEON: Jhonatan Read MD INDICATIONS: Rectal bleeding. PREOPERATIVE DIAGNOSIS: POSTOPERATIVE DIAGNOSIS: PROCEDURE PERFORMED: Colonoscopy to the terminal ileum with snare polypectomy. ESTIMATED BLOOD LOSS: COMPLICATIONS: ANESTHESIA: ASSISTANTS: SPECIMENS: MEDICATIONS: Monitored anesthesia care. DESCRIPTION OF PROCEDURE: A history and physical was performed. The risks and benefits of the procedure were explained to the patient, and informed consent was obtained. The patient was placed in the left lateral decubitus position. A digital rectal exam was performed and was found to be normal. The Olympus pediatric video colonoscope was introduced into the rectum and advanced to the cecum. The cecum was identified by transillumination, palpation, and identification of ileocecal valve. Examination was performed. The scope was removed. She tolerated the procedure well and was returned to the recovery area in stable condition. FINDINGS: The terminal ileum was examined and appeared normal. The visualized colonic mucosa was within normal limits without evidence of masses or ulcers. A single polyp measuring approximately 8 mm was identified in the rectum. This appeared somewhat inflammatory in nature. This was removed with a snare and recovered via suction. Retroflexed examination showed some small internal hemorrhoids. IMPRESSION: Colon polyp. RECOMMENDATION: Follow up the biopsy results. MD DARREN Perdomo/MODL / [id number]
== END 2023-09-09 14:46 | disposition home or self-care (01) ==
PROVIDERS: Nurse Practitioner; Visit Provider Internal Medicine Gastroenterology
PROC: 0DJD8ZZ Inspection of Lower Intestinal Tract, Via Natural or Artificial Opening Endoscopic (ICD-10-PCS; CPT 45378; principal; 2023-09-09 13:30)
DX: K62.5 Hemorrhage of anus and rectum (principal); K62.1 Rectal polyp; K64.8 Other hemorrhoids; K21.9 Gastro-esophageal reflux disease without esophagitis; Z79.899 Other long term (current) drug therapy
CPT/HCPCS: 45385; 81025; 88305; J2704

== ENCOUNTER 2023-09-23 19:38 | Emergency (ER) | payer MEDICAID, SELFPAY ==
[2023-09-23 20:18] VITALS: BP 125/59; PULSE 85; RESP 18; TEMP 36.8; O2SAT 100; BMI 35.5
--- NOTE | 2023-09-23 20:19 | ED_ITS ---
HPI - General Adult General Chief complaint: Dental/Oral Stated complaint: Dental Pain Time Seen by Provider: 09/23/23 21:35 Related Data Home Medications Medication Instructions Recorded Confirmed bismuth subcit K 140 3 cap PO QID 06/17/23 08/03/23 mg-metronidazole 125 mg-tetracycline 125 mg cap (Pylera) diclofenac sodium 1 % topical gel 2 g topical 06/17/23 08/03/23 ergocalciferol (vitamin D2) 1,250 1,250 mcg PO QWEEK 06/17/23 08/03/23 mcg (50,000 unit) capsule melatonin 5 mg tablet 10 mg PO BEDTIME PRN insomnia 06/17/23 09/07/23 omeprazole 20 mg capsule,delayed 40 mg PO DAILY 06/17/23 09/07/23 release Previous Rx's Medication Instructions Recorded docusate sodium 100 mg capsule 100 mg PO BID #20 caps 03/31/23 (Colace) sennosides 8.6 mg tablet (senna) 8.6 mg PO BEDTIME #14 tabs 03/31/23 sumatriptan succinate 50 mg tablet 50 mg PO Q2-4H PRN migraine 04/13/23 headache #10 tabs cyclobenzaprine 10 mg tablet 10 mg PO TID PRN muscle spasm #14 06/17/23 tabs ibuprofen 600 mg tablet 600 mg PO Q8H PRN pain #14 tabs 06/17/23 lidocaine 5 % topical patch 1 patch topical DAILY #15 ea 06/17/23 oxycodone 5 mg tablet 5 mg PO Q8H PRN pain #7 tabs 09/23/23 Allergies Allergy/AdvReac Type Severity Reaction Status Date / Time No Known Allergies Allergy Verified 09/27/23 11:09 [facility] Past Medical History Medical History GERD (gastroesophageal reflux disease) Dysphagia Heartburn Migraine headache Surgical History Hx of section Social History Social History Household Members: Spouse and Children Alcohol intake: current Alcohol intake frequency: former alcohol drinker Patient Tobacco Use Status: Never used Tobacco Current occupational status: unemployed Physical Exam ED Vital Signs: BMI result Body Mass Index 35.5 Course Course Course Narrative: RME performed by Marguerite Washburn PA-C. Patient is a 33 year old assigned female at presenting to the emergency department with dental pain. Patient placed back in the waiting room pending room availability and results. Patient evaluated and dispositioned by Dr. Choi. Please refer to his note for the course of this patient's visit. Medications Administered Discontinued Medications Generic Name Dose Route Start Last Admin Trade Name Freq PRN Reason Stop Dose Admin Hydrocodone Bitart/Acetaminophen 1 tab 09/23/23 22:32 09/23/23 22:42 Hydrocodone Bit/Acetam 5/325 Tablet PO 09/23/23 22:33 1 tab ONCE ONE Administration Discharge Plan Discharge Clinical Impression: Tooth ache Patient Disposition: Home, Self-Care Instructions: Toothache (ED) Prescriptions: New oxycodone 5 mg tablet 5 mg PO Q8H PRN (Reason: pain) Qty: 7 0RF Rx Instructions: Partial Fill upon patient request. No Action sennosides [senna] 8.6 mg tablet 8.6 mg PO BEDTIME Qty: 14 0RF docusate sodium [Colace] 100 mg capsule 100 mg PO BID Qty: 20 0RF sumatriptan succinate 50 mg tablet 50 mg PO Q2-4H PRN (Reason: migraine headache) Qty: 10 0RF Rx Instructions: do not exceed 4 doses per 24 hrs cyclobenzaprine 10 mg tablet 10 mg PO TID PRN (Reason: muscle spasm) Qty: 14 0RF ibuprofen 600 mg tablet 600 mg PO Q8H PRN (Reason: pain) Qty: 14 0RF lidocaine 5 % adhesive patch,medicated 1 patch topical DAILY Qty: 15 0RF Rx Instructions: leave on most painful area for up to 12 hrs diclofenac sodium 1 % gel 2 g topical ergocalciferol (vitamin D2) 1,250 mcg (50,000 unit) capsule 1,250 mcg PO QWEEK bismuth subcit C-hkyjifpfj-oae [Pylera] 140-125-125 mg capsule 3 cap PO QID omeprazole 20 mg capsule,delayed release(DR/EC) 40 mg PO DAILY melatonin 5 mg tablet 10 mg PO BEDTIME PRN (Reason: insomnia) Referrals: Physician,Unknown J [Primary Care Provider] - 2 days (Please follow-up with your dentist as soon as possible) Interventions: ED Discharge Assessment Last Done: 09/23/23 22:47 Discharge Date/Time: 09/23/23 22:49
[2023-09-23 22:00] VITALS: BP 115/61; PULSE 82; RESP 16; O2SAT 100
--- NOTE | 2023-09-23 22:39 | ED_ITS ---
HPI - Dental/Oral General Chief complaint: Dental/Oral Stated complaint: Dental Pain Time Seen by Provider: 09/23/23 21:35 History of Present Illness HPI Narrative: Patient is a 33-year-old female presents today with having toothache. The pain is in the upper left molar. Has a history of cavities tear. Seen by a dentist approximately 1 week ago started on amoxicillin. Complaining of pain getting worse over the last 2-3 days. Patient denies any fever chills. Any shortness of breath any difficulty swallowing the symptoms are chronic but getting worse Related Data Home Medications Medication Instructions Recorded Confirmed bismuth subcit K 140 3 cap PO QID 06/17/23 08/03/23 mg-metronidazole 125 mg-tetracycline 125 mg cap (Pylera) diclofenac sodium 1 % topical gel 2 g topical 06/17/23 08/03/23 ergocalciferol (vitamin D2) 1,250 1,250 mcg PO QWEEK 06/17/23 08/03/23 mcg (50,000 unit) capsule melatonin 5 mg tablet 10 mg PO BEDTIME PRN insomnia 06/17/23 09/07/23 omeprazole 20 mg capsule,delayed 40 mg PO DAILY 06/17/23 09/07/23 release Previous Rx's Medication Instructions Recorded docusate sodium 100 mg capsule 100 mg PO BID #20 caps 03/31/23 (Colace) sennosides 8.6 mg tablet (senna) 8.6 mg PO BEDTIME #14 tabs 03/31/23 sumatriptan succinate 50 mg tablet 50 mg PO Q2-4H PRN migraine 04/13/23 headache #10 tabs cyclobenzaprine 10 mg tablet 10 mg PO TID PRN muscle spasm #14 06/17/23 tabs ibuprofen 600 mg tablet 600 mg PO Q8H PRN pain #14 tabs 06/17/23 lidocaine 5 % topical patch 1 patch topical DAILY #15 ea 06/17/23 norethindrone (contraceptive) 0.35 0.35 mg PO DAILY #84 tabs 08/03/23 mg tablet oxycodone 5 mg tablet 5 mg PO Q8H PRN pain #7 tabs 09/23/23 Allergies Allergy/AdvReac Type Severity Reaction Status Date / Time No Known Allergies Allergy Verified 09/23/23 20:25 Review of Systems Review of Systems: Positive toothache PMFSH Past Medical History Medical History GERD (gastroesophageal reflux disease) Dysphagia Heartburn Migraine headache Surgical History Hx of section Social History Social History Household Members: Spouse and Children Alcohol intake: current Alcohol intake frequency: former alcohol drinker Patient Tobacco Use Status: Never used Tobacco Advance Directives: No Advance Directives Information Provided: No Current occupational status: unemployed Physical Exam Vital Signs: Vital Signs: Last Vital Signs Temp 98.2 F 09/23/23 20:18 Pulse 82 09/23/23 22:00 Resp 16 09/23/23 22:00 BP 115/61 09/23/23 22:00 Pulse Ox 100 09/23/23 22:00 O2 Del Method Room Air 09/23/23 22:00 BMI result Body Mass Index 35.5 Const: Other: Appearance: Alert. Oriented X3. No acute distress. Eyes: Pupils equal, round and reactive to light. ENT: Pharynx normal. Positive cavity noted in the upper left molar Neck: Normal inspection. Neck supple. No lymph nodes noted. No crepitus CVS: Normal heart rate and rhythm. Pulses normal. Normal S1 and S2 Respiratory: No respiratory distress. Breath sounds normal. No Wheezing. No rales Abdomen: Soft and nontender. No rigidity. No distention. good BS x4 Skin: Skin warm and dry. Normal skin color. Normal skin turgor. Extremities: No lower extremity edema. Neurovascular intact to all extremities. No Lacerations. No Rash Neuro: Oriented X 3. No motor deficit. No sensory deficit. Moving all extermi ties. No slurred speech Medical Decision Making Medical Decision Making MDM Narrative: Well-appearing no acute distress. Positive to fake. Patient complaining of being on amoxicillin for 3 days. Took some Tylenol with minimal effect. Will go ahead and give patient oxycodone for extreme pain. Will need follow-up with dentist on an outpatient basis. Differential Diagnosis Differential Diagnoses: The differential diagnosis associated with the presentation includes Toothache, peritonsillar abscess, Jose A's angina Admission/Observation Consideration of admission/observation: Escalation of care including admission/observation considered Patient does not need admission Prescription Management I considered prescription management with: Antibiotic No need for antibiotic as patient already on antibiotic Discharge Plan Discharge Clinical Impression: Tooth ache Patient Disposition: Home, Self-Care Instructions: Toothache (ED) Prescriptions: New oxycodone 5 mg tablet 5 mg PO Q8H PRN (Reason: pain) Qty: 7 0RF Rx Instructions: Partial Fill upon patient request. No Action sennosides [senna] 8.6 mg tablet 8.6 mg PO BEDTIME Qty: 14 0RF docusate sodium [Colace] 100 mg capsule 100 mg PO BID Qty: 20 0RF sumatriptan succinate 50 mg tablet 50 mg PO Q2-4H PRN (Reason: migraine headache) Qty: 10 0RF Rx Instructions: do not exceed 4 doses per 24 hrs cyclobenzaprine 10 mg tablet 10 mg PO TID PRN (Reason: muscle spasm) Qty: 14 0RF ibuprofen 600 mg tablet 600 mg PO Q8H PRN (Reason: pain) Qty: 14 0RF lidocaine 5 % adhesive patch,medicated 1 patch topical DAILY Qty: 15 0RF Rx Instructions: leave on most painful area for up to 12 hrs diclofenac sodium 1 % gel 2 g topical ergocalciferol (vitamin D2) 1,250 mcg (50,000 unit) capsule 1,250 mcg PO QWEEK bismuth subcit D-ghpjfzkaq-rkx [Pylera] 140-125-125 mg capsule 3 cap PO QID omeprazole 20 mg capsule,delayed release(DR/EC) 40 mg PO DAILY melatonin 5 mg tablet 10 mg PO BEDTIME PRN (Reason: insomnia) norethindrone (contraceptive) 0.35 mg tablet 0.35 mg PO DAILY Qty: 84 4RF Referrals: Physician,Unknown J [Primary Care Provider] - 2 days (Please follow-up with your dentist as soon as possible)
[2023-09-23] MEDS: HYDROcodone Bit/Acetam 5/325 TABLET 1 TAB PO (22:42)
== END 2023-09-23 22:49 | disposition home or self-care (01) ==
PROVIDERS: Emergency Provider Emergency Medicine Emergency Medical Services
DX: K02.9 Dental caries, unspecified (principal)
CPT/HCPCS: 99283

== ENCOUNTER 2023-09-27 10:54 | Outpatient (REF) | payer MEDICAID, SELFPAY ==
[2023-10-01 08:58] LABS: HPV mRNA E6/E7 rflx Not Detected (Not Detected)
== END 2023-09-27 10:55 | disposition home or self-care (01) ==
LOC: HO.LNP 10:54
PROVIDERS: Visit Provider Obstetrics & Gynecology
DX: Z01.419 Encounter for gynecological examination (general) (routine) without abnormal findings (principal); Z11.51 Encounter for screening for human papillomavirus (HPV)
CPT/HCPCS: 87624; 88142; 99385

== ENCOUNTER 2023-09-27 10:54 | Outpatient (AMB) | payer MEDICAID, SELFPAY ==
[2023-09-27 11:05] VITALS: BP 126/80; BMI 36.1
--- NOTE | 2023-09-27 11:05 | MHC.OFFVIS ---
Intake Vital Signs 09/27/23 11:05 Height 5 ft 5 in Weight 217 lb BMI 36.1 BP 126/80 Intake Visit Reasons: [employer] annual exam Policy Loan Calculator Required: Yes Policy Loan Calculator Language: Cooper Michel Policy Loan Calculator Name: Ross [id number] Information Interpreted: non-clinical & clinical Inventory Administrator: Inventory Administrator Present (Rona) Allergies No Known Allergies Allergy (Verified 09/27/23 11:09) Is last menstrual period known: No Post menopausal: No HPI HPI Comments History of Present Illness Details Presenting for annual exam. No complaints. Last Pap/HPV unknown Last Mammogram was in 06/01 was [facility] [place] Medical History GERD (gastroesophageal reflux disease) Dysphagia Heartburn Migraine headache Surgical History Hx of section Social History Household Members: Spouse and Children Alcohol intake: current Alcohol intake frequency: former alcohol drinker Patient Tobacco Use Status: Never used Tobacco Current occupational status: unemployed Female Reproductive History Menstrual Age of Menarche: 12 Duration of menses: 3-5 days control method: none Total pregnancies: 5 Full term: 2 Number of Living Children: 2 Ab spontaneous: 3 Date of Mammogram: 06/08/23 Physical Exam Vital Signs: Last Vital Signs BP 126/80 09/27/23 11:05 BMI result Body Mass Index 36.1 Assessment & Plan Assessment & Plan (1) Well woman exam: Code(s): Z01.419 - Encounter for gynecological examination (general) (routine) without abnormal findings Plan: Cotesting done. Counseled the patient about the recommended dietary allowance of 1000 mg of Calcium & 600 IU of vitamin D. The patient was instructed to perform monthly self-breast exams and to schedule an annual exam in a year; All questions answered and the patient verbalized understanding. Instructed the patient to schedule annual exam in a year Coding Level of Care Code New Pt Prev Care 18-39yr(47106 Diagnoses Well woman exam Z01.419
== END 2023-09-27 11:32 | disposition home or self-care (01) ==
LOC: HO.HWS 10:54
PROVIDERS: Visit Provider Obstetrics & Gynecology
DX: Z01.419 Encounter for gynecological examination (general) (routine) without abnormal findings (principal)
CPT/HCPCS: 99385

== ENCOUNTER 2023-10-05 20:19 | Emergency (ER) | payer MEDICAID, SELFPAY ==
--- NOTE | 2023-10-05 20:24 | ED.URI ---
HPI - URI/Sore Throat General Chief Complaint: Upper Respiratory Symptoms Stated Complaint: Sore throat Time Seen by Provider: 10/05/23 22:34 Source: patient Mode of arrival: ambulatory Limitations: language barrier History of Present Illness HPI Narrative: Patient is a 33-year-old female who presents emergency department for evaluation of intermittent headache, nonproductive cough, and sore throat. Symptom onset was 5 days ago progressively worsening. She went to workToday and was sent home due to feeling unwell. She does state others around her at work have been Sick as well. she has not tried any [id number]-[id number] medications. She denies dizziness, lightheadedness, neck pain, neck stiffness, chest pain, shortness of breath, nausea vomiting, abdominal pain, numbness or tingling of the extremities, weakness. Related Data Home Medications Medication Instructions Recorded Confirmed bismuth subcit K 140 3 cap PO QID 06/17/23 08/03/23 mg-metronidazole 125 mg-tetracycline 125 mg cap (Pylera) diclofenac sodium 1 % topical gel 2 g topical 06/17/23 08/03/23 ergocalciferol (vitamin D2) 1,250 1,250 mcg PO QWEEK 06/17/23 08/03/23 mcg (50,000 unit) capsule melatonin 5 mg tablet 10 mg PO BEDTIME PRN insomnia 06/17/23 09/07/23 omeprazole 20 mg capsule,delayed 40 mg PO DAILY 06/17/23 09/07/23 release Previous Rx's Medication Instructions Recorded docusate sodium 100 mg capsule 100 mg PO BID #20 caps 03/31/23 (Colace) sennosides 8.6 mg tablet (senna) 8.6 mg PO BEDTIME #14 tabs 03/31/23 sumatriptan succinate 50 mg tablet 50 mg PO Q2-4H PRN migraine 04/13/23 headache #10 tabs cyclobenzaprine 10 mg tablet 10 mg PO TID PRN muscle spasm #14 06/17/23 tabs ibuprofen 600 mg tablet 600 mg PO Q8H PRN pain #14 tabs 06/17/23 lidocaine 5 % topical patch 1 patch topical DAILY #15 ea 06/17/23 oxycodone 5 mg tablet 5 mg PO Q8H PRN pain #7 tabs 09/23/23 Allergies Allergy/AdvReac Type Severity Reaction Status Date / Time No Known Allergies Allergy Verified 09/27/23 11:09 Review of Systems Review of Systems: Yes all other systems are reviewed and are negative [facility] Past Medical History Attestation statement: The following information was validated with the patient. Source: old records reviewed Medical History GERD (gastroesophageal reflux disease) Dysphagia Heartburn Migraine headache Surgical History Hx of section Social History Social History Household Members: Spouse and Children Alcohol intake: current Alcohol intake frequency: former alcohol drinker Patient Tobacco Use Status: Never used Tobacco Advance Directives: No Advance Directives Information Provided: No Current occupational status: unemployed Physical Exam Vital Signs: Vital Signs: Last Vital Signs Temp 97.6 F 10/05/23 20:25 Pulse 73 10/05/23 20:25 Resp 18 10/05/23 20:25 BP 129/68 10/05/23 20:25 Pulse Ox 100 10/05/23 20:25 O2 Del Method Room Air 10/05/23 20:25 BMI result Body Mass Index 34.7 Appearance: Alert.?Oriented to person, place and time. No acute distress.?Normal affect. Eyes: Pupils equal, round and reactive to light.? ENT: Pharynx mildly erythematous without tonsillar hypertrophy, exudates. No trismus. No drooling. Uvula midline. TM normal bilaterally. Neck: Normal inspection.? Neck supple.??No cervical lymphadenopathy. CVS: Heart sounds normal. Normal heart rate and rhythm.? Pulses normal.?? Respiratory: No respiratory distress.? Lung sounds clear to auscultation bilaterally?? Abdomen: Soft and non-tender. Normoactive bowel sounds. Skin: Skin warm and dry.? Normal skin color.? Extremities: No lower extremity edema.? Neuro: Moves all extremities spontaneously. Sensation intact bilaterally.Ambulates with normal steady gait. Course Course Course Narrative: RME: 33 yo F w/PMHx migraine presenting to the ED c/o sore throat, cough & CARMICHAEL x5 days. denies fever, N/V, chills Viral testing, rapid strep ordered Full HPI, ROS and PE to be performed by primary ED provider. Medical Decision Making Medical Decision Making [facility] Narrative: Patient is a 33-year-old female, presenting for evaluation of upper respiratory symptoms. COVID-19/influenza/strep a testing are negative At this time history and physical exam not consistent with ACS/PE/pneumonia. No evidence of peritonsillar retropharyngeal abscess upon examination. No meningismus. Well-appearing, nontoxic, afebrile, no tachycardia or tachypnea/hypoxia. Speaking clear full sentences, ambulatory with steady gait. Discussed conservative treatment including rest, hydration, Tylenol/ibuprofen as needed for fever and body aches, saline nasal spray, humidifier, ibzr-lpe-fztvkga cold medication. Advised to follow-up with primary care provider as needed, discussed reasons to return back to the emergency department. All questions were answered. Patient discharged home in stable condition. Provided with a return to work note. Differential Diagnosis Differential Diagnoses: The differential diagnosis associated with the presentation includes (As noted above) Admission/Observation Consideration of admission/observation: Escalation of care including admission/observation considered (As noted above) Lab Data [facility] Lab Attestation statement: I reviewed the patient's lab results. (As noted above) Labs: Lab Results 10/05/23 Range/Units 20:31 COVID-19 (DEBRA) Negative (Negative) COVID-19 Clin Com See Note Influenza Type A (DEB) Negative (Negative) Influenza Type B (DEB) Negative (Negative) Influenza A & B Note See Note S. pyogenes GrpA DEB Negative (Negative) Prescription Management I considered prescription management with: Pain Medication (Acetaminophen/ibuprofen) Discharge Plan Discharge Clinical Impression: Upper respiratory infection, Pharyngitis Patient Disposition: Home, Self-Care Instructions: Upper Respiratory Infection (ED), Pharyngitis (ED) Additional Instructions: Be sure to rest, stay well hydrated drinking plenty of fluids, eat small frequent meals. You can take ibuprofen 200 mg, 3 tablets (600mg) every 6-8 hours as needed for pain, in addition to Tylenol 500 mg, 2 tablets (1,000mg) every 4-6 hours as needed for pain, but not to exceed 3 doses daily (3,000mg).? Kvoo-cqz-zszcwrp cold medications may be helpful as well for symptoms. Saline nasal spray, humidifier may be helpful for nasal congestion. You may return to the emergency department with any new or worsening symptoms or concerns. Follow-up with your primary care provider as needed. Prescriptions: No Action sennosides [senna] 8.6 mg tablet 8.6 mg PO BEDTIME Qty: 14 0RF docusate sodium [Colace] 100 mg capsule 100 mg PO BID Qty: 20 0RF sumatriptan succinate 50 mg tablet 50 mg PO Q2-4H PRN (Reason: migraine headache) Qty: 10 0RF Rx Instructions: do not exceed 4 doses per 24 hrs cyclobenzaprine 10 mg tablet 10 mg PO TID PRN (Reason: muscle spasm) Qty: 14 0RF ibuprofen 600 mg tablet 600 mg PO Q8H PRN (Reason: pain) Qty: 14 0RF lidocaine 5 % adhesive patch,medicated 1 patch topical DAILY Qty: 15 0RF Rx Instructions: leave on most painful area for up to 12 hrs oxycodone 5 mg tablet 5 mg PO Q8H PRN (Reason: pain) Qty: 7 0RF Rx Instructions: Partial Fill upon patient request. diclofenac sodium 1 % gel 2 g topical ergocalciferol (vitamin D2) 1,250 mcg (50,000 unit) capsule 1,250 mcg PO QWEEK bismuth subcit B-ouyzkmkti-cdu [Pylera] 140-125-125 mg capsule 3 cap PO QID omeprazole 20 mg capsule,delayed release(DR/EC) 40 mg PO DAILY melatonin 5 mg tablet 10 mg PO BEDTIME PRN (Reason: insomnia) Referrals: Physician,Unknown J [Primary Care Provider] - Stand Alone Forms: Work/School Release
[2023-10-05 20:25] VITALS: BP 129/68; PULSE 73; RESP 18; TEMP 36.4; O2SAT 100; BMI 34.7
[2023-10-05 21:09] LABS: IDNOW Serial# 08D9AD1C; Strep A Nucleic Acid Negative (Negative)
[2023-10-05 21:10] LABS: COVID-19 Test Negative (Negative); IDNOW Serial# BCCEAD1C; Influenza A Negative (Negative)
[2023-10-05 21:11] LABS: Influenza B2 Negative (Negative)
[2023-10-05 21:12] LABS: IDNOW Serial# 9DB6401D
[2023-10-05 23:29] VITALS: BP 140/77; PULSE 74; RESP 16; TEMP 36.7; O2SAT 99
== END 2023-10-06 00:07 | disposition home or self-care (01) ==
PROVIDERS: Physician Assistant; Emergency Provider Emergency Medicine
DX: J02.9 Acute pharyngitis, unspecified (principal); J06.9 Acute upper respiratory infection, unspecified; Z11.52 Encounter for screening for COVID-19
CPT/HCPCS: 87502; 87635; 87651; 99283

== ENCOUNTER 2023-10-27 18:17 | Emergency (ER) | payer MEDICAID, SELFPAY ==
[2023-10-27 18:56] VITALS: BP 114/75; PULSE 76; RESP 16; TEMP 36.4; O2SAT 99; BMI 29.1
[2023-10-27 20:00] VITALS: BP 116/69; PULSE 81; RESP 16; TEMP 36.9; O2SAT 100
[2023-10-27 22:00] VITALS: BP 111/65; PULSE 77; RESP 16; TEMP 36.9; O2SAT 100
--- NOTE | 2023-10-27 22:43 | ED.GENADULT ---
HPI - General Adult General Chief complaint: Skin/Abscess/Foreign Body Stated complaint: itchy all over? Time Seen by Provider: 10/27/23 21:24 Source: patient Mode of arrival: ambulatory Limitations: no limitations History of Present Illness HPI narrative: 33-year-old female no past medical history presents to ED for itchiness for the past 2 weeks and intermittent allergic rash hives. Patient states they will come and go. Patient denies any lip swelling, throat swelling, tongue swelling, chest pain, shortness of breath or any history of allergies. Patient denies any new cosmetics, lotion, food, detergent, or new foods. Related Data Home Medications Medication Instructions Recorded Confirmed bismuth subcit K 140 3 cap PO QID 06/17/23 08/03/23 mg-metronidazole 125 mg-tetracycline 125 mg cap (Pylera) diclofenac sodium 1 % topical gel 2 g topical 06/17/23 08/03/23 ergocalciferol (vitamin D2) 1,250 1,250 mcg PO QWEEK 06/17/23 08/03/23 mcg (50,000 unit) capsule melatonin 5 mg tablet 10 mg PO BEDTIME PRN insomnia 06/17/23 09/07/23 omeprazole 20 mg capsule,delayed 40 mg PO DAILY 06/17/23 09/07/23 release Previous Rx's Medication Instructions Recorded docusate sodium 100 mg capsule 100 mg PO BID #20 caps 03/31/23 (Colace) sennosides 8.6 mg tablet (senna) 8.6 mg PO BEDTIME #14 tabs 03/31/23 sumatriptan succinate 50 mg tablet 50 mg PO Q2-4H PRN migraine 04/13/23 headache #10 tabs cyclobenzaprine 10 mg tablet 10 mg PO TID PRN muscle spasm #14 06/17/23 tabs ibuprofen 600 mg tablet 600 mg PO Q8H PRN pain #14 tabs 06/17/23 lidocaine 5 % topical patch 1 patch topical DAILY #15 ea 06/17/23 oxycodone 5 mg tablet 5 mg PO Q8H PRN pain #7 tabs 09/23/23 diphenhydramine HCl 25 mg capsule 25 mg PO TID PRN itching 7 days 10/27/23 (Benadryl) #21 caps famotidine 20 mg tablet (Pepcid) 20 mg PO BID 7 days #14 tabs 10/27/23 prednisone 20 mg tablet 40 mg (2 x 20 mg) PO DAILY 5 days 10/27/23 #10 tabs Allergies Allergy/AdvReac Type Severity Reaction Status Date / Time No Known Allergies Allergy Verified 09/27/23 11:09 Review of Systems Review of Systems: Generalized itchiness Yes all other systems are reviewed and are negative PMFSH Past Medical History Onset Date is defined in the Problem List Problems that require an onset date and time if occurred within 24 hrs of arrival to the ED Aortic Dissection and Rupture; Neurologic impairment; Cardiopulmonary Arrest; Endotracheal Intubation; Insertion or Replacement of Mechanical Circulatory Assist Device Medical History GERD (gastroesophageal reflux disease) Dysphagia Heartburn Migraine headache Surgical History Hx of section Social History Social History Household Members: Spouse and Children Alcohol intake: current Alcohol intake frequency: former alcohol drinker Patient Tobacco Use Status: Never used Tobacco Advance Directives: No Advance Directives Information Provided: No Current occupational status: unemployed Physical Exam ED Vital Signs: Vital Signs - 24 hr 10/27/23 18:56 10/27/23 20:00 10/27/23 22:00 Temperature 97.6 F 98.5 F 98.5 F Pulse Rate 76 81 77 Respiratory Rate 16 16 16 Blood Pressure 114/75 116/69 111/65 Pulse Oximetry 99 100 100 Oxygen Delivery Method Room Air Room Air Room Air BMI result Body Mass Index 29.1 Const General: cooperative, healthy appearing, comfortable, no acute distress, well developed, alert, awake and Physically active Orientation/consciousness: oriented to person, oriented to place, oriented to time and patient oriented x3 HENMT Other: Negative for neck swelling, tongue swelling, lip swelling, facial swelling, drooling, or change in voice. Head: Yes normal to inspection, Yes No palpable skull fracture present, Yes normocephalic and Yes atraumatic Eyes General: appearance normal, both eyes and all related structures Neck Neck: Yes normal visual inspection, Yes full ROM, Yes no lymphadenopathy, Yes no meningeal signs, Yes trachea midline, Yes supple, No anterior neck swelling and No tender Chest Chest palpation & inspection: normal inspection of the chest and normal palpation of entire chest wall Resp Effort & Inspection: normal respiratory effort and able to speak in complete sentences Auscultation: clear to auscultation bilaterally Cardio Jugular venous distension: no JVD Heart sounds: S1 normal heart sound present and S2 normal heart sound present GI Inspection: Yes normal to inspection Palpation (GI): Soft to palpation, not firm, nontender, no guarding and not rigid General: Yes no CVA tenderness Back/Spine/Pelvis Back: no CVA tenderness and No back tenderness Skin General skin exam: no rashes or lesions noted, elasticity normal and turgor normal Neuro General: oriented to person, oriented to place, oriented to time, patient oriented x3, gait normal, tone normal, moves all extremities, Normal light touch and pain sensation, no meningeal signs, no focal motor deficits, CN's II-XI intact bilaterally and normal sensation to monofilament Extrem General: Yes normal to inspection and Yes full ROM Psych Appearance: grossly normal, well kempt and not disheveled Medical Decision Making Medical Decision Making MDM Narrative: 33-year-old female with itchiness and intermittent hives. Patient denies any anaphylactic symptoms. Patient presently has no hives. Patient denies any chest pain or shortness of breath. Patient states no fever or chills. Patient well-appearing. Differential Diagnosis Differential Diagnoses: The differential diagnosis associated with the presentation includes (Allergic reaction, contact dermatitis, eczema) Admission/Observation Consideration of admission/observation: Escalation of care including admission/observation considered External Record Review External record reviewed: Other (Prior Visits) Prescription Management I considered prescription management with: Other (benadryl, pepcid, and prednisone) Discharge Plan Discharge Clinical Impression: Allergic reaction Patient Disposition: Home, Self-Care Instructions: General Allergic Reaction (ED) Additional Instructions: Ou pral egzeyate ak Benadryl, prednisone, ak Pepcid hollie demanjezon ak reyaksyon al?jik. Rek?mande swivi ak founis? swen prensipal ou hollie t?s patch hollie w? flori ou f? al?ji. Retounen nan ED imedyatman hollie nenp?t ki anfle nan bouch yo, anfle nan lang, anfle nan figi, sansasyon nan g?j f?men, grat?l wouj, lafy?v, frison, po dekale, doul? nan pwatrin, souf kout, oswa nenp?t l?t sent?m ki kons?ne. Prescriptions: New diphenhydramine HCl [Benadryl] 25 mg capsule 25 mg PO TID PRN (Reason: itching) 7 Days Qty: 21 0RF prednisone 20 mg tablet 40 mg PO DAILY 5 Days Qty: 10 0RF famotidine [Pepcid] 20 mg tablet 20 mg PO BID 7 Days Qty: 14 0RF No Action sennosides [senna] 8.6 mg tablet 8.6 mg PO BEDTIME Qty: 14 0RF docusate sodium [Colace] 100 mg capsule 100 mg PO BID Qty: 20 0RF sumatriptan succinate 50 mg tablet 50 mg PO Q2-4H PRN (Reason: migraine headache) Qty: 10 0RF Rx Instructions: do not exceed 4 doses per 24 hrs cyclobenzaprine 10 mg tablet 10 mg PO TID PRN (Reason: muscle spasm) Qty: 14 0RF ibuprofen 600 mg tablet 600 mg PO Q8H PRN (Reason: pain) Qty: 14 0RF lidocaine 5 % adhesive patch,medicated 1 patch topical DAILY Qty: 15 0RF Rx Instructions: leave on most painful area for up to 12 hrs oxycodone 5 mg tablet 5 mg PO Q8H PRN (Reason: pain) Qty: 7 0RF Rx Instructions: Partial Fill upon patient request. diclofenac sodium 1 % gel 2 g topical ergocalciferol (vitamin D2) 1,250 mcg (50,000 unit) capsule 1,250 mcg PO QWEEK bismuth subcit [id number] [Pylera] 140-125-125 mg capsule 3 cap PO QID omeprazole 20 mg capsule,delayed release(DR/EC) 40 mg PO DAILY melatonin 5 mg tablet 10 mg PO BEDTIME PRN (Reason: insomnia) Stand Alone Forms: Work/School Release Discharge Date/Time: 10/27/23 23:12 Print Language: Malawian
== END 2023-10-27 23:12 | disposition home or self-care (01) ==
PROVIDERS: Emergency Provider Internal Medicine
DX: L50.0 Allergic urticaria (principal); Z79.899 Other long term (current) drug therapy
CPT/HCPCS: 99283

== ENCOUNTER 2024-02-11 20:32 | Emergency (ER) | payer MEDICAID, SELFPAY ==
[2024-02-11 20:53] VITALS: BP 129/79; PULSE 86; RESP 18; TEMP 36.9; O2SAT 100; BMI 35.6
--- NOTE | 2024-02-11 22:45 | ED.FALL ---
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 The patient had no loss of consciousness. She did strike her face on the pavement and chipped her front tooth. She states that her tetanus status is up-to-date. She denied headache, she has had nausea with no vomiting. She denied numbness or weakness. Related Data Home Medications ?Medication ?Instructions ?Recorded ?Confirmed bismuth subcit K 140 3 cap PO QID 06/17/23 08/03/23 mg-metronidazole 125 mg-tetracycline 125 mg cap (Pylera) diclofenac sodium 1 % topical gel 2 g topical 06/17/23 08/03/23 ergocalciferol (vitamin D2) 1,250 1,250 mcg PO QWEEK 06/17/23 08/03/23 mcg (50,000 unit) capsule melatonin 5 mg tablet 10 mg PO BEDTIME PRN insomnia 06/17/23 09/07/23 omeprazole 20 mg capsule,delayed 40 mg PO DAILY 06/17/23 09/07/23 release Previous Rx's ?Medication ?Instructions ?Recorded docusate sodium 100 mg capsule 100 mg PO BID #20 caps 03/31/23 (Colace) sennosides 8.6 mg tablet (senna) 8.6 mg PO BEDTIME #14 tabs 03/31/23 sumatriptan succinate 50 mg tablet 50 mg PO Q2-4H PRN migraine 04/13/23 headache #10 tabs cyclobenzaprine 10 mg tablet 10 mg PO TID PRN muscle spasm #14 06/17/23 tabs ibuprofen 600 mg tablet 600 mg PO Q8H PRN pain #14 tabs 06/17/23 lidocaine 5 % topical patch 1 patch topical DAILY #15 ea 06/17/23 oxycodone 5 mg tablet 5 mg PO Q8H PRN pain #7 tabs 09/23/23 diphenhydramine HCl 25 mg capsule 25 mg PO TID PRN itching 7 days 10/27/23 (Benadryl) #21 caps famotidine 20 mg tablet (Pepcid) 20 mg PO BID 7 days #14 tabs 10/27/23 prednisone 20 mg tablet 40 mg (2 x 20 mg) PO DAILY 5 days 10/27/23 #10 tabs acetaminophen 500 mg tablet 1,000 mg (2 x 500 mg) PO Q6H PRN 02/11/24 (Tylenol Extra Strength) fever or pain #20 tabs ibuprofen 400 mg tablet 400 mg PO TID PRN fever or pain 02/11/24 #30 tabs morphine 15 mg tablet,extended 15 mg PO Q6H PRN pain #10 tabs 02/11/24 release Allergies Allergy/AdvReac Type Severity Reaction Status Date / Time No Known Allergies Allergy Verified 02/11/24 20:54 Review of Systems Review of Systems: Yes all other systems are reviewed and are negative [facility] Past Medical History Medical History GERD (gastroesophageal reflux disease) Dysphagia Heartburn Migraine headache Surgical History Hx of section Social History Social History Household Members: Spouse and Children Alcohol intake: current Alcohol intake frequency: former alcohol drinker Patient Tobacco Use Status: Never used Tobacco Advance Directives: No Advance Directives Information Provided: No Current occupational status: unemployed Physical Exam Vital Signs: Vital Signs: Last Vital Signs Temp 98.4 F 02/11/24 20:53 Pulse 86 02/11/24 20:53 Resp 18 02/11/24 20:53 BP 129/79 02/11/24 20:53 Pulse Ox 100 02/11/24 20:53 O2 Del Method Room Air 02/11/24 20:53 BMI result Body Mass Index 35.6 Vital signs were normal Exam: General: Awake, alert in no distress Head: Normocephalic, atraumatic EENT: Pupils were equal round reactive light, sclera contact however normal, mouth revealed moist membranes, patient does have a chip to tooth number 9, superficial abrasion to the left upper and lower lip Neck: Supple, no adenopathy Lung: breath sounds symmetric, no wheezing, rales or rhonchi Chest: symmetric movement, nontender Heart: regular rate and rhythm, normal S1, S2 no murmurs or rubs Abdomen: soft, non-tender, nondistended, normal bowel sounds Back: no vertebral tenderness, no CVAT Extremities: Abrasions to right hand and right knee, moves all extremities symmetrically Neuro: Awake, alert, oriented, normal speech, cranial nerves intact, moves all extremities symmetrically Psych: Pleasant, cooperative Medical Decision Making Medical Decision Making MDM Narrative: 34-year-old female with history of migraine headaches, dysphagia, GERD, DEAN positive who presents emergency department for evaluation of injuries from a fall in the parking with injury to her lips, tooth 9, no loss of consciousness. Patient is having significant pain secondary to her chipped tooth. Patient stated there tetanus status up-to-date. Differential diagnosis: ?Includes but is not limited to skull fracture, intracranial bleed , dental injury, concussion Patient was initially treated with the following: Ibuprofen 400 mg orally, morphine 15 mg orally Course: 23:18 Patient's physical examination did reveal that tooth 9 was chipped. Patient also had abrasions to her lips, right hand and right knee Patient was treated with morphine 15 mg orally and ibuprofen 400 mg orally for her pain Patient's wounds were cleaned and dressed with bacitracin. She was given printed and verbal instructions and discharged home. Independent Historian Clinical information obtained from an independent historian. History obtained from or confirmed by: Spouse Prescription Management I considered prescription management with: Pain Medication Discharge Plan Discharge Clinical Impression: Fall, Chipped tooth, Abrasion Patient Disposition: Home, Self-Care Additional Instructions: You will need to follow-up with your dentist for your chipped tooth. Take ibuprofen 200 mg pills, 3 pills every 6 hours as needed for pain. Take Tylenol (acetaminophen) 2 pills every 4-6 hours as needed for pain. For pain not relieved by ibuprofen or Tylenol take morphine 15 mg pills, 1 pill every 4 hours as needed for pain. This medication will make you sleepy, do not drive or work while taking this medication. Morphine is a narcotic medication and can be addicting. If you are concerned about addiction you can ask the pharmacist for less pills or do not get this prescription filled. Apply bacitracin twice a day to your lip wound, hand and knee wound. Do this for 1 week. Follow-up with your doctor in 2 days. Please return to the emergency department if your symptoms get worse or if you develop any symptoms that are concerning to you. Prescriptions: New acetaminophen [Tylenol Extra Strength] 500 mg tablet 1,000 mg PO Q6H PRN (Reason: fever or pain) Qty: 20 0RF ibuprofen 400 mg tablet 400 mg PO TID PRN (Reason: fever or pain) Qty: 30 0RF morphine 15 mg tablet extended release 15 mg PO Q6H PRN (Reason: pain) Qty: 10 0RF Rx Instructions: Partial Fill upon patient request. No Action sennosides [senna] 8.6 mg tablet 8.6 mg PO BEDTIME Qty: 14 0RF docusate sodium [Colace] 100 mg capsule 100 mg PO BID Qty: 20 0RF sumatriptan succinate 50 mg tablet 50 mg PO Q2-4H PRN (Reason: migraine headache) Qty: 10 0RF Rx Instructions: do not exceed 4 doses per 24 hrs cyclobenzaprine 10 mg tablet 10 mg PO TID PRN (Reason: muscle spasm) Qty: 14 0RF ibuprofen 600 mg tablet 600 mg PO Q8H PRN (Reason: pain) Qty: 14 0RF lidocaine 5 % adhesive patch,medicated 1 patch topical DAILY Qty: 15 0RF Rx Instructions: leave on most painful area for up to 12 hrs oxycodone 5 mg tablet 5 mg PO Q8H PRN (Reason: pain) Qty: 7 0RF Rx Instructions: Partial Fill upon patient request. diphenhydramine HCl [Benadryl] 25 mg capsule 25 mg PO TID PRN (Reason: itching) 7 Days Qty: 21 0RF prednisone 20 mg tablet 40 mg PO DAILY 5 Days Qty: 10 0RF famotidine [Pepcid] 20 mg tablet 20 mg PO BID 7 Days Qty: 14 0RF diclofenac sodium 1 % gel 2 g topical ergocalciferol (vitamin D2) 1,250 mcg (50,000 unit) capsule 1,250 mcg PO QWEEK bismuth subcit [id number] [Pylera] 140-125-125 mg capsule 3 cap PO QID omeprazole 20 mg capsule,delayed release(DR/EC) 40 mg PO DAILY melatonin 5 mg tablet 10 mg PO BEDTIME PRN (Reason: insomnia) Print Language: Cooper Michel
[2024-02-11] MEDS: Bacitracin Oint 0.9 GM PACKET 1 APPL TOPICAL (23:14)
[2024-02-11] MEDS: Ibuprofen 400 MG TABLET PO (23:14)
--- NOTE | 2024-02-11 23:18 | PC.NURSE ---
Pt medicated per DEC. veterinary assistant technician at bedside for wound cleaning. Pt provided with DC paperwork.
[2024-02-11 23:30] VITALS: BP 130/84; PULSE 88; RESP 16; TEMP 36.9; O2SAT 100
== END 2024-02-11 23:33 | disposition home or self-care (01) ==
PROVIDERS: Emergency Provider Emergency Medicine Emergency Medical Services
DX: K03.81 Cracked tooth (principal); S00.511A Abrasion of lip, initial encounter; S60.511A Abrasion of right hand, initial encounter; S80.211A Abrasion, right knee, initial encounter; W01.0XXA Fall on same level from slipping, tripping and stumbling without subsequent striking against object, initial encounter; Y93.89 Activity, other specified; Y92.481 Parking lot as the place of occurrence of the external cause; Y99.9 Unspecified external cause status
CPT/HCPCS: 99283

== ENCOUNTER 2024-03-06 12:49 | Outpatient (AMB) | payer MEDICAID, SELFPAY ==
[2024-03-06 13:06] VITALS: BP 130/76; PULSE 83; BMI 36.7
--- NOTE | 2024-03-06 13:06 | A.OFFVIS_ITS ---
Vital Signs 03/06/24 13:06 Height 5 ft 5 in Weight 220 lb 7.396 oz BMI 36.7 BP 130/76 Blood Pressure Location Lt brachial Position Sitting Pulse 83 Intake Visit Reasons: NPV/Barciona/Chest pain Intake Note: NEw patient c/o chest pain straight into her back all the time Senior Consultant Required: Yes Senior Consultant Name: Jose noel Allergies No Known Allergies Allergy (Verified 02/11/24 20:54) Medication List - Last Reconciled 03/06/24 by Phu Bustos MD acetaminophen (Tylenol Extra Strength) 1,000 mg (2 x 500 mg) PO Q6H PRN cyclobenzaprine 10 mg PO TID PRN diclofenac sodium 1% 2 grams topical diphenhydramine HCl (Benadryl) 25 mg PO TID PRN 7 days docusate sodium (Colace) 100 mg PO BID ergocalciferol (vitamin D2) 1,250 mcg PO QWEEK famotidine (Pepcid) 20 mg PO BID 7 days ibuprofen 400 mg PO TID PRN ibuprofen 600 mg PO Q8H PRN lidocaine 5% 1 patch topical DAILY melatonin 10 mg PO BEDTIME PRN oxycodone 5 mg PO Q8H PRN prednisone 40 mg (2 x 20 mg) PO DAILY 5 days sennosides (senna) 8.6 mg PO BEDTIME sumatriptan succinate 50 mg PO Q2-4H PRN HPI Comments Details: Ananya is here for consultation regarding chest pains. She states that she has had chest pain going back about an year or so. Off and on pain. No specific provoking factors. Sometimes when she is sitting or lying in a certain position, the pain can come on. No clear exertional characteristics. No other complaints like shortness of breath. No prior documented cardiac issues. [facility] Medical History GERD (gastroesophageal reflux disease) Dysphagia Heartburn Migraine headache Surgical History Hx of section Family History (Updated 03/06/24 @ 13:31 by Phu Bustos MD) Father No problems noted. Mother No problems noted. Social History Household Members: Spouse and Children Alcohol intake: current Alcohol intake frequency: former alcohol drinker Patient Tobacco Use Status: Never used Tobacco Current occupational status: unemployed Female Reproductive History Menstrual Age of Menarche: 12 Review of Systems Const Denies chills, Denies daytime sleepiness, Denies fatigue, Denies fever(s), Denies frequent falls, Denies poor appetite, Denies snoring, Denies stops breathing during sleep, Denies weakness, Denies weight gain and Denies weight loss Eyes Denies loss of vision ENT Denies dizziness and Denies hearing loss Card Reports chest pain, Denies claudication, Denies leg edema, Denies lightheadedness, Denies palpitations, Denies dyspnea, Denies dyspnea on exertion and Denies orthopnea Resp Denies cough, Denies excessive phlegm production, Denies dyspnea, Denies dyspnea on exertion, Denies snoring and Denies wheezing GI Denies abdominal pain, Denies hematochezia, Denies change in bowel habits, Denies nausea and Denies vomiting Denies urinary frequency and Denies dysuria Musc Denies arthralgias, Denies muscle weakness, Denies numbness and Denies other (frequent falls) Skin/Breast Denies nail changes and Denies rash Neuro Denies Abnormal speech present, Denies dizziness, Denies frequent falls, Denies loss of vision, Denies memory loss, Denies numbness and Denies weakness Psych Denies depression and Denies memory loss Endo Denies fatigue and Denies palpitations Matthew/Lymph Reports easy bruising and Reports other (anemia) Aller/Immun Denies wheezing Physical Exam Vital Signs: Last Vital Signs Pulse 83 03/06/24 13:06 BP 130/76 03/06/24 13:06 BMI result Body Mass Index 36.7 Const General: comfortable and no acute distress Orientation/consciousness: patient oriented x3 HEENT Other: Unremarkable Head: Yes normal to inspection Neck Neck: Yes normal visual inspection Chest Chest palpation & inspection: normal inspection of the chest Resp Auscultation: clear to auscultation bilaterally Cardio Palpation: normal PMI Heart sounds: S1 normal heart sound present, S2 normal heart sound present, no gallops, no murmurs and no rubs GI Palpation (GI): Soft to palpation Back/Spine/Pelvis Other: unremarkable Skin General skin exam: no rashes or lesions noted Neuro General: patient oriented x3 Speech: No Abnormal speech present Extrem General: Yes normal to inspection Psych Mental Status: mental status grossly normal Office Procedures EKG Details: EKG with sinus rhythm at 83/Min; no significant ST-T changes and otherwise unremarkable. [place]. [id number], Complete Assessment & Plan Assessment & Plan (1) Chest pain: Code(s): R07.9 - Chest pain, unspecified Category: Medical Plan Atypical symptoms, possibly musculoskeletal. Will get an echocardiogram to ensure there is no pericardial effusion or other concerns. Orders: Orders CA echo transthoracic complete Today R07.9 - Chest pain, unspecified Coding Level of Care Code New Pt Level 3 (00493) Diagnoses Chest pain R07.9 CPT Codes EKG - CPT: 23263-[id number], Complete ([id number])
== END 2024-03-06 13:35 | disposition home or self-care (01) ==
PROVIDERS: PCP Internal Medicine; Referring Provider Internal Medicine; Visit Provider Internal Medicine
DX: R07.9 Chest pain, unspecified (principal)
CPT/HCPCS: 93010; 99203

== ENCOUNTER → 2024-03-06 12:49 | Outpatient (BNVA) | payer MEDICAID, SELFPAY | PROVIDERS: Visit Provider Internal Medicine | DX: R07.9 Chest pain, unspecified (principal) | CPT/HCPCS: 93005; 99202 ==

== ENCOUNTER 2024-04-06 11:54 | Outpatient (REF) | payer MEDICAID, SELFPAY ==
[2024-04-08 22:23] LABS: TS Negative Control Passed; TS Panel A 0; TS Panel B 0; TS Positive Control Passed; TSpotTB Negative (Negative)
== END 2024-04-06 11:55 | disposition home or self-care (01) ==
LOC: HO.HHCL 11:54
PROVIDERS: Visit Provider Internal Medicine
DX: Z11.1 Encounter for screening for respiratory tuberculosis (principal)
CPT/HCPCS: 36415; 86481

== ENCOUNTER → 2024-04-11 10:42 | Outpatient (REF) | payer MEDICAID, SELFPAY ==
--- NOTE | 2024-04-11 10:44 | CA_ITS ---
Transthoracic Echocardiogram Patient (Last, First, Middle): Ananya Nair, Gender: Female Date of : 1990 Age: 34 Procedure Date: 04/11/2024 Procedure Type: Transthoracic Echocardiogram Location: OP Height: 160.02 cm Weight: 92. kg BSA: 1.95 m2 Heart Rate: bpm BP: 130 / 70 mmHg Casing Builder: MARY Referring MD: Phu Bustos MD Symptoms: R07.9 - Chest pain, unspecified Study Quality: Fair ECG Rhythm: Sinus Conclusions: - The left ventricular systolic function is normal. The visually estimated ejection fraction is between 60-65%. - No obvious valvular pathology seen on this study. Findings Left Ventricle Normal left ventricular cavity size. There is normal left ventricular wall thickness. The left ventricular systolic function is normal. The visually estimated ejection fraction is between 60-65%. There is no evidence of regional wall motion abnormalities. Diastolic function is normal for age. LV peak GLS -18.9%. Right Ventricle Normal right ventricular cavity size and systolic function. Atria Both atria are normal in size. Aortic Valve There is a normal trileaflet aortic valve. There is no aortic valve stenosis. There is no aortic valve regurgitation. Mitral Valve The mitral valve appears normal. There is trace mitral valve regurgitation. There is no mitral valve stenosis. Pulmonic Valve The pulmonic valve is likely normal. There is trace pulmonic valve regurgitation. Tricuspid Valve Normal tricuspid valve structure. There is mild tricuspid valve regurgitation. There is no evidence of pulmonary hypertension. Great Vessels The asc aorta and aortic arch are normal in size. Venous The inferior vena cava is normal in size and collapses greater than 50% with inspiration. Pericardium/Pleural There is a trivial pericardial effusion. Prior Study Comparison No prior study available for comparison. Recommendations, Care & Conclusions No obvious valvular pathology seen on this study. Measurements 2D Linear Measurements IVSd: 0.92 0.6-0.9/0.6-1.0 cm LVIDd: 4.90 3.9-5.3/4.2-5.9 cm LVIDd Index: 2.51 2.4-3.2/2.2-3.1 cm/m2 LVIDs: 3.01 2.0-3.6 cm LVPWd: 0.88 0.7-1.1 cm Ao Root: 3.00 2.1-3.5 cm LA Diam: 3.50 2.7-3.8/3.0-4.0 cm LAIDs Index: 1.79 1.5-2.3 cm/m2 LV Mass: 190.44 67-162/88-224 g LV Mass Index: 97.66 43-95/49-115 g/m2 LVOT Diam: 2.00 3.0+(-)1.3 cm 2D Systolic Function EF 4C: 52.70 >55% EF 2C: 53.20 >55% EF BiP: 53.80 >55% Mitral Valve MV Pk E: 0.76 MV PK A: 0.60 MV Decel Time: 192.00 E/A: 1.30 E'Lateral: 12.60 E'Medial: 10.00 E/E' Med: 7.60 E/E' Lat: 6.00 PHT: 56.00 MVA PHT: 3.93 Decel [place]: 3.95 Aortic Valve AoV Pk Kevin: 1.41 AoV Mn Kevin: 1.03 AoV VTI: 0.30 AoV Pk Grad: 8.00 Aov Mn Grad: 5.00 DUGLAS Cont.VTI: 2.30 LVOT LVOT Pk Kevin: 0.90 LVOT Mn Kevin: 0.68 LVOT VTI: 0.22 LVOT Pk Grad: 3.00 LVOT Mn Grad: 2.00 LVOT Diam: 2.00 LVOT Area: 3.14 Diastolic Function MV Pk E: 0.76 MV Pk A: 0.60 E/A: 1.30 E'Medial: 10.00 E/E' Med: 7.60 E' Laterial: 12.60 E/E' Lat: 6.00 Right Ventricle TAPSE (mm): 20.00 TVS' Kevin: 13.00 Tricuspid Valve TR Pk Kevin: 2.35 TR Pk Grad: 22.00 RA Press: 3.00 RVSP: 25.00 Great Vessels Aorta Ao Root-2D: 3.00 2.0-3.7 cm Ao Asc: 2.80 2.1-3.4 cm Ao Arch: 2.50 Updated in Other Vendor System with Status of Final Phu Bustos MD electronically signed on 04/13/2024 11:39:42 AM with status of Final
== END ==
LOC: HO.CARD 10:42
PROVIDERS: PCP Internal Medicine; Visit Provider Internal Medicine
DX: R07.9 Chest pain, unspecified (principal)
CPT/HCPCS: 93306; 93356

== ENCOUNTER → 2024-04-11 10:44 | Outpatient (BNV) | payer MEDICAID, SELFPAY | PROVIDERS: PCP Internal Medicine; Visit Provider Internal Medicine | DX: I36.1 Nonrheumatic tricuspid (valve) insufficiency (principal) | CPT/HCPCS: 93306; 93356 ==

== ENCOUNTER 2025-01-07 14:37 | Outpatient (AMB) | payer MEDICAID, SELFPAY ==
--- NOTE | 2025-01-07 14:45 | A.OFFVIS_ITS ---
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 No complaints. Last Pap/HPV was negative in 10/01 [facility] Medical History GERD (gastroesophageal reflux disease) Dysphagia Heartburn Migraine headache Surgical History Hx of section Family History Father No problems noted. Mother No problems noted. Social History Household Members: Spouse and Children Alcohol intake: current Alcohol intake frequency: former alcohol drinker Patient Tobacco Use Status: Never used Tobacco Current occupational status: unemployed Female Reproductive History Menstrual Age of Menarche: 12 Total pregnancies: 5 Full term: 2 Ab spontaneous: 3 Date of last pap smear: 09/27/23 (negative pap smear, negative hpv ) Date of Mammogram: 06/08/23 (bi rad 2) Review of Systems Const All systems reviewed & are unremarkable except as noted in HPI and below Card Reports as per HPI Resp Reports as per HPI GI Reports as per HPI and Reports no additional complaints Reports as per HPI Physical Exam Vital Signs: Last Vital Signs BP 116/70 01/07/25 14:51 BMI result Body Mass Index 36.6 Const General: cooperative, healthy appearing and comfortable Chest Chest palpation & inspection: normal inspection of the chest and normal palpation of entire chest wall Breast/axilla inspection: normal inspection of the breasts and normal inspection of the axillae Breast/axilla palpation: normal palpation of the breasts, normal palpation of the axillae and no axillary lymphadenopathy Resp Effort & Inspection: normal respiratory effort Auscultation: clear to auscultation bilaterally Percussion: percussion normal Cardio Palpation: normal PMI Rate: regular rate Rhythm: regular rhythm Heart sounds: no murmurs and no rubs Peripheral pulses: Peripheral pulses 2+ throughout GI Inspection: Yes normal to inspection Palpation (GI): Soft to palpation, nontender, no guarding, not rigid and No hepatosplenomegaly present Percussion: Yes normal to percussion Auscultation: normal bowel sounds Rectal Exam - Female: deferred General: Yes bladder normal to palpation External Female Exam: No lesion Speculum Exam - Vagina: normal appearance of the vagina, normal palpation, normal vaginal discharge and not erythematous Speculum Exam - Cervix: normal appearance of the cervix and normal palpation Bimanual exam- vagina & uterus: normal bimanual exam, normal palpation, uterine size normal, bladder normal to palpation, consistency normal and normal palpation Bimanual Exam- Adnexa, other: normal adnexae, no masses and no tenderness Assessment & Plan Assessment & Plan (1) Well woman exam: Code(s): Z01.419 - Encounter for gynecological examination (general) (routine) without abnormal findings Category: Medical Plan: Cotesting done. Counseled the patient about the recommended dietary allowance of 1000 mg of Calcium & 600 IU of vitamin D. The patient was instructed to perform monthly self-breast exams and to schedule an annual exam in a year; All questions answered and the patient verbalized understanding. Instructed the patient to schedule annual exam in a year Coding Level of Care Code Est Pt Prev Care 18-39y(77873) Diagnoses Well woman exam Z01.419
[2025-01-07 14:51] VITALS: BP 116/70; BMI 36.6
--- OUTSIDE RECORDS SUMMARY | 2025-01-07 16:31 | XMS_ITS | Clinical Summary ---
Author Organization [employer] Address [address] [place] [address] Care Team Providers Care Telephoto Engineer Name Role Phone Deanna Mishra MD Primary Care Provide r Allergies No known active allergies Medications Diclofenac Sodium 1 % gelIndications:S ubsternal chest pain Apply 2 g topically if needed in the morning and at bedtime (pain). 150 g 1 3 Active Additional Information Patient not taking.Reported on 02/13/2024 sodium chloride (Morning Sun Nasal [place]) 0.65 % nasal sprayIndications :Strep throat 1-2 sprays on each nostril every 2-3 hours as needed for nasal congestion 30 mL 1 3 Active Additional Information Patient not taking.Reported on 02/13/2024 melatonin 10 MG tabletIndication s:Insomnia, unspecified type Take 1 tablet (10 mg) by mouth if needed at bedtime (insomnia). 90 tablet 1 3 Active Additional Information Patient not taking.Reported on 02/13/2024 Antacid/Antigas 400-400-40 MG/10ML oral suspensionIndica tions:Substernal chest pain TAKE 10 ML BY MOUTH EVERY 6 HOURS NEEDED FOR HEARTBURN OR INDIGESTION 355 mL 1 3 Active Additional Information Patient not taking.Reported on 02/13/2024 baclofen (Lioresal) 10 MG tabletIndication s:Substernal chest pain TAKE 1 TABLET BY MOUTH THREE TIMES DAILY IN THE MORNING, AT NOON, AND AT BEDTIME NEEDED FOR MUSCLE SPASMS 40 tablet 1 3 Active Additional Information Patient not taking.Reported on 02/13/2024 lidocaine (Lidoderm) 5 % patch APPLY 1 PATCH TOPICALLY TO SKIN, LEAVE ON FOR 12 HOURS AND OFF FOR 12 HOURS DIRECTED 30 patch 1 3 Active Additional Information Patient not taking.Reported on 02/13/2024 ergocalciferol (Vitamin D2) 1.25 MG (08459 UT) capsuleIndicatio ns:Vitamin D deficiency TAKE 1 CAPSULE BY MOUTH ONCE WEEKLY 12 capsule 1 3 Active Additional Information Patient not taking.Reported on 02/13/2024 amoxicillin (Amoxil) 875 MG tablet Take 500 mg by mouth 2 times daily. Active SUMAtriptan (Imitrex) 25 MG tabletIndication s:Chronic migraine without aura without status migrainosus, not intractable Take 1 tablet (25 mg) by mouth 1 (one) time if needed for migraine for up to 27 doses. May repeat dose once in 2 hours if no relief. Do not exceed 2 doses in 24 hours. 9 tablet 2 4 Active Additional Information Patient not taking.Reported on 02/13/2024 pantoprazole (ProtoNix) 40 MG EC tabletIndication s:Gastroesophage al reflux disease, unspecified whether esophagitis present TAKE 1 TABLET BY MOUTH EVERY DAY BEFORE BREAKFAST. DO NOT BREAK, CRUSH, DISSOLVE OR CHEW. 90 tablet 4 Active Active Problems Problem Noted Date Diagnosed Date Blood in stool 06/07/2024 Constipation 06/07/2024 Rectal bleeding 06/07/2024 GERD (gastroesophageal reflux disease) Assessment & Plan (04/06/2024 4:19 PM EDT): I advise patient to avoid NSAIDs, spicy and acid food, I advise to eat at the same time every day, I advise to elevate the head of the bed and take medications as prescribe Tuberculosis screening 04/06/2024 Chronic bilateral low back pain without sciatica 11/02/2023 Epigastric pain 11/02/2023 Assessment & Plan (01/05/2024 3:25 PM EDT): I advise patient to avoid NSAIDs, spicy and acid food, I advise to eat at the same time every day, I advise to elevate the head of the bed and take medications as prescribe Assessment & Plan (11/02/2023 4:43 PM EST): I advise patient to avoid NSAIDs, spicy and acid food, I advise to eat at the same time every day, I advise to elevate the head of the bed and take medications as prescribe Other chest pain 11/02/2023 Assessment & Plan (11/02/2023 4:44 PM EST): In light pain is happening for over a year I will refer patient to cardiology Upper back pain 11/02/2023 Assessment & Plan (04/06/2024 4:20 PM EDT): Heat on affected area Acetaminophen PRN Assessment & Plan (11/02/2023 4:45 PM EST): Acetaminophen + flexeril I reviewed side effects with patient somnolence, do not drive Costochondritis 03/08/2023 Assessment & Plan (11/02/2023 4:44 PM EST): Apply heat on affected area Acteminophen+flexeril Assessment & Plan (03/08/2023 11:19 AM EDT): Patient was reassured today Naproxen 500mg BID PRN with full stomach Positive DEAN (antinuclear antibody) 03/08/2023 Nexplanon insertion 03/08/2023 Insomnia 02/25/2023 Assessment & Plan (03/08/2023 11:18 AM EDT): C/w melatonin 5mg at bed time Chronic migraine without aur a without status migrainosus, not intractable 02/25/2023 Assessment & Plan (04/06/2024 4:20 PM EDT): I advise to avoid migraine triggers like red wine, chocolate, cheese, strong perfumes Assessment & Plan (01/05/2024 3:24 PM EDT): I advise to avoid migraine triggers like red wine, chocolate, cheese, strong perfumes Assessment & Plan (03/08/2023 11:18 AM EDT): I advise to avoid migraine triggers like red wine, chocolate, cheese, strong perfumes C/w sumatriptan PRN Obesity 12/09/2022 Encounters Date Type Department Care Team Description 12/21/2024 Population Health Risk Score [facility] ([facility]) Department [address] [phone] Provider, Population Health Generic 12/12/2024 3:35 PM EST Office Visit [facility] [address] [place] [address] Chidi Beaver, AUGUSTINE 12/12/2024 2:00 PM EST Office Visit [facility] [address] [place] [address] Ghanshyam Mora Dental calculus (Primary Dx) from Last 3 Months Social History Tobacco Use Types Packs/Day Years Used Date Smoking Tobacco: Never Passive Smoke Exposure: Never Smokeless Tobacco: Never Tobacco Cessation:Counseling Given: Not Answered Alcohol Use Standard Drinks/Week Comments Never 0 (1 standard drink = 0.6 oz pur e alcohol) Depression Answer Date Recorded Patient Health Questionnaire-9 Score 0 04/06/2024 Patient Health Questionnaire-9 Score 0 04/06/2024 Last PHQ-9: Questionnaire Data Not on file 0 04/06/2024 Housing Stability Answer Date Recorded What is your housing situation today? I have geovani tatum 08/03/[address] you li ve. Do you have problems with any of the following? None of the above 08/03/2023 Food Insecurity Answer Date Recorded Within the past 12 months, y ou worried that your food would run out before you got money to buy more: Never True 08/03/2023 Within the past 12 months,th e food you bought just didn't last and you didn't have enough money to get more: Never True Transportation Answer Date Recorded In the past 12 months, has l ack of transportation kept you from medical appts, meetings, work or from getting things needed for daily living? No 08/03/2023 Utilities Answer Date Recorded In the past 12 months, has t he electric, gas, oil or water company threatened to shut off services in your home? No 08/03/2023 Depression Answer Date Recorded Patient Health Questionnaire-2 Score 0 04/06/2024 Comments No Sex and Gender Information Value Date Recorded Sex Assigned at Female 12/09/2022 1:22 PM EST Legal Sex Female 1:14 PM EST Gender Identity Female 12/09/2022 1:22 PM EST Sexual Orientation Don't know 12/09/2022 1: 22 PM EST Last Filed Vital Signs Vital Sign Reading Time Taken Comments Blood Pressure 135/75 12/12/2024 1:59 PM EST Pulse 65 12/12/2024 1:59 PM EST Temperature 36.7 ??C (98 ??F) 08/08/2024 4:48 PM EDT Respiratory Rate 18 08/08/2024 4:48 PM EDT Oxygen Saturation 99% 08/08/2024 4:48 PM EDT Inhaled Oxygen Concentration - - Weight 102 kg (225 lb 6.4 oz) 08/08/2024 4:48 PM EDT Height 170.2 cm (5' 7 ) 08/08/2024 4:48 PM EDT Body Mass Index 35.3 08/08/2024 4:48 PM EDT Plan of Treatment Health Maintenance Due Date Last Done Comments Alcohol/Substance Use Screening 2000 Family Planning (PISQ) 01/02/2003 DTaP/Tdap/Td Vaccines (1 - Tdap) 01/02/2007 Hepatitis B Vaccines (1 of 3 - 19+ 3-dose series) 01/02/2007 COVID-19 Vaccine ( - 2023-2 5 season) 2024 Dental Oral Exam 12/08/2024 06/07/2024 SDOH Screening 12/27/2024 12/28/2023 Depression Screening 04/06/2025 04/06/2024, 04/06/2024 Dental Prophylaxis 06/15/2025 12/12/2024, 06/07/2024 Dental X-Ray: Bitewings 08/11/2025 08/10/20 24, 06/07/2024 Tobacco Screening 12/12/2025 12/12/2024 Dental X-Ray: Full Mouth 06/08/2027 024, 10/12/2023 Lipid Panel 12/11/2027 12/10/2022 Cervical Cancer Screening 09/27/2028 HPV/Cotest 09/27/2028 09/27/2023 Pap Smear 09/27/2028 09/27/2023 Zoster Vaccines (1 of 2) 01/02/2038 RSV Patients and Patients Aged 60 years or older (1 - 1-dose 75+ series) 01/02/2063 HIV Screening Completed 02/17/2023 Hepatitis C Screening Completed 04/07/2023 Influenza Vaccine Completed 08/13/2024 HIB Vaccines Aged Out No longer eligi ble based on patient's age to complete this topic HPV Vaccines Aged Out No longer eligi ble based on patient's age to complete this topic Hepatitis A Vaccines Aged Out No long er eligible based on patient's age to complete this topic IPV Vaccines Aged Out No longer eligi ble based on patient's age to complete this topic Meningococcal Vaccine Aged Out No khadra alphonso eligible based on patient's age to complete this topic Pneumococcal Vaccine: Pediatrics (0 to 5 Years) and At-Risk Patients (6 to 49) Years) Aged Out No longer eligible b ased on patient's age to complete this topic RSV under 20 months Aged Out No longe r eligible based on patient's age to complete this topic Rotavirus Vaccines Aged Out No longer eligible based on patient's age to complete this topic Procedures Procedure Name Priority Date/Time Associated Diagnosis Comments LIMITED ORAL EVALUATION - PROBLEM FOCUSED Routine 12/12/2024 3:35 PM EST ORAL HYGIENE INSTRUCTIONS Routine 12/12/2024 2:00 PM EST PROPHYLAXIS - ADULT Routine 12/12/2024 2 :00 PM EST CASE PRESENTATION, DETAILED AND EXTENSIVE TREATMENT PLANNING Routine 12/12/2024 2:00 PM EST BITEWING - SINGLE RADIOGRAPHIC IMAGE Routine 08/10/2024 1:30 PM EDT INTRAORAL - COMPLETE SERIES OF RADIOGRAPHIC IMAGES Routine 06/07/2024 2:30 PM EDT Dental caries COMPREHENSIVE ORAL EVALUATION - NEW OR ESTABLISHED PATIENT Routine 06/07/2024 2:30 PM EDT Dental caries HM PAP/HPV Routine 09/27/2023 HEPATITIS C VIRAL RNA, QUANTITATIVE, REAL-TIME PCR Routine 04/07/2023 10:33 AM EDT Positive DEAN (antinuclear antibody) HIV 1/2 ANTIGEN/ANTIBODY, FOURTH GENERATION W/RFL Routine 02/17/2023 11:41 AM EDT Polyarthralgia LIPID PANEL, STANDARD Routine 12/10/2022 10:44 AM EST Substernal chest pain from Last 3 Months or Most Recently Relevant to Health Maintenance Results * Hm Pap Smear (09/27/2023) Pap Negative for intraephithelial lesion or malignancy Negative for intraephithelial lesion or malignancy, Other HPV Undetected Undetected, Indeterminate, Quantitative, Not Detected [facility] Provider HEALTH MAINTENANCE Final Result * Hepatitis C Viral RNA, Quantitative, Real-Time PCR (04/07/2023 10:33 AM EDT) HCV RNA, QN Real Time PCR <15 NOT DETECTED NOT DETECTED IU/mL [employer] HCV RNA QN Real Time PCR <1.18 NOT DETECTED NOT DETECTED Log IU/mL [employer] Comment: This test was performed using Real-Time Polymerase Chain Reaction. Reportable Range: 15 IU/mL to 100,000,000 IU/mL (1.18 Log IU/mL to 8.00 Log IU/mL). ?? The analytical performance characteristics of this assay have been determined by [employer]. The modifications have not been cleared or approved by the FDA. This assay has been validated pursuant to the CLIA regulations and is used for clinical purposes. ?? For more information on this test, go to: http://education.Adviqo/faq/QRV43u6 (This link is being provided for informational/ educational purposes only.) 04/07/2023 10:3 3 AM EDT 04/07/2023 10:33 AM EDT Deanna Garces MD LAB BLOOD ORDERABLES Final Result [facility] [address], [place] [address] [employer] [facility] [address] [place] [address] * HIV-1/2 Antigen and Antibodies, Fourth Generation, with Reflexes (02/17/2023 11:41 AM EDT) HIV Antigen/Antibody, 4th Generation NON-REAC TIVE NON-REAC TIVE [employer] Comment: HIV-1 antigen and HIV-1/HIV-2 antibodies were not detected. There is no laboratory evidence of HIV infection. PLEASE NOTE: This information has been disclosed to you from records whose confidentiality may be protected by state law. ??If your state requires such protection, then the state law prohibits you from making any further disclosure of the information without the specific written consent of the person to whom it pertains, or as otherwise permitted by law. A general authorization for the release of medical or other information is NOT sufficient for this purpose. ?? For additional information please refer to http://education.Adviqo/faq/AXL556 (This link is being provided for informational/ educational purposes only.) The performance of this assay has not been clinically validated in patients less than 2 years old. Blood Venous blood specimen / Unknown 02/17/2023 11:41 AM EDT 02/17/2023 11:42 AM EDT Narrative [facility] - 02/23/2023 11:51 AM EDT FASTING:NO FASTING: NO us Wanda Lacey [facility] LAB BLOOD ORDERABLES Final Res ult [facility] [address], [place] [address] [employer] [address] [place] [address] * (ABNORMAL) Lipid Panel, Standard (12/10/2022 10:44 AM EST) Pathologist [facility] Cholesterol, Total 204(H) <200 mg/dL [employer] HDL Cholesterol 56 > OR = 50 mg/dL [employer] Triglycerides 68 <150 mg/dL [employer] LDL Cholesterol 132(H) mg/dL (calc) [employer] Comment: Reference range: <100 Desirable range <100 mg/dL for primary prevention; ?? <70 mg/dL for patients with CHD or diabetic patients with > or = 2 CHD risk factors. LDL-C is now calculated using the Emma calculation, which is a validated novel method providing better accuracy than the Friedewald equation in the estimation of LDL-C. Dontae HIRSCH et al. SANTOS. 2013;310(19): 5249-3998 (http://education.Cylex/faq/JFR811) Chol/HDLC Ratio 3.6 <5.0 (calc) [facility] Non-HDL Cholesterol 148(H) <130 mg/dL (calc) [employer] Comment: For patients with diabetes plus 1 major ASCVD risk factor, treating to a non-HDL-C goal of <100 mg/dL (LDL-C of <70 mg/dL) is considered a therapeutic option. Blood Venous blood specimen / Unknown 12/10/2022 10:44 AM EST 12/10/2022 10:45 AM EST Narrative [facility] - 12/11/2022 1:22 PM EST FASTING:YES FASTING: YES us Tiara Gregory DO LAB BLOOD ORDERABLES Final R esult [facility] [address], [place] [address] [facility] [address] [facility], ([address]) [place] [address] from Last 3 Months or Most Recently Relevant to Health Maintenance Insurance [facility] C[facility] [place] STAND ADULT Care Teams Telephoto Engineer Relationship Specialty Start Date End Date Deanna Mishra MD [address] [place] [id number] PCP - General Internal Medicine 03/08/23
--- OUTSIDE RECORDS SUMMARY | 2025-01-07 16:31 | XMS_ITS ---
Author Organization [facility] Address [address] [place] [phone] Care Team Providers Care Forklift Supervisor Name Role Phone Deanna Durham M.D. Primary Care Provider Jhonatan Real Jr REASON FOR VISIT rectal bleeding Encounters Encounter Location Date Provider Diagnosis [facility] Outpatient [address] [place], [place] [id number] 09/09/2023 Jhonatan Read Jr Rectal bleeding K62.5 and Colon polyps K63.5 Assessments Encounter Date Diagnosis (ICD Code) Assessment Notes Treatment Notes Treatment Clinical Notes Section Notes 09/09/2023 Rectal bleeding (ICD-10 - K62.5) 09/09/2023 Colon polyps (ICD-10 - K63.5) Plan Of Treatment No Information Progress Notes * MAGDIEL BREENDOB: 8 (35 yo F)Acc No.[id number]:09/09/2023 COLON WITH MAC Patient:?MAGDIEL BREEN Provider:?Jhonatan Read MD :1990???Age:33 Y???Sex:Female D ate:09/09/2023 Address:[address] [place], [place] [id number] Pcp:Deanna Durham M.D. Subjective: * Chief Complaints: * ???1. Rectal bleeding. * Medical History:? Objective: * Vitals:? Assessment: * Assessment: 1.?Rectal bleeding - K62.5 ( Primary)???2.?Colon polyps - K63.5??? Plan: * Treatment: * Procedure Codes:?07225 LESIO N REMOVAL COLONOSCOPY * * The named appointment provid er may or may not be the originator of this progress note, and it is not deemed complete until electronically signed by the appointment provider. Sign off status: Pending * Provider:?Jhonatan Read MD Date:?1 11/10/2022 Generated for Usman white/Karla/Elliot on:?01/07/2025 04:31 PM EDT
--- OUTSIDE RECORDS SUMMARY | 2025-01-07 16:31 | XMS_ITS ---
Author Organization [facility] Address [address] [place] [address] Care Team Providers [employer] Tax Manager Name Role Phone Deanna Durham M.D. Primary Care Provider Jhonatan Real Jr Allergies No Known Allergies REASON FOR VISIT Patient presents today for a rectal bleeding Medications Medication SIG (Take, Route, Frequency, Duration) Notes Start Date End Date Status MiraLax (colon prep) 17 GM/SCOOP mixed with Gatorade or Crystal Light Orally begin at 5:00 p.m. the day before the procedure for 1 day 08/10/2023 Active Omeprazole 20 MG 1 capsule 30 minutes before morning meal Orally Once a day for 30 day(s) Active Immunizations Vaccine Route Administration Date Status Comme nts Influenza Unknown 08/10/2023 Refused Social History Tobacco Use: Social History Observation Description Date Details (start date - stop date) Never Smoker NA - NA Tobacco Use/Smoking Question Answer Notes Patient is a nonsmoker Alcohol Screen Question Answer Notes Did you have a drink containing alcohol in the p ast year? No Points 0 Interpretation Negative Problems Problem Type SNOMED Code ICD Code Onset Dates Problem Status W/U Status Risk Notes Problem [id number] Rectal bleeding (K62.5) Active confirmed Vital Signs Temperature 98.0 degrees Fahrenheit 08/10/20 23 Blood pressure systolic 000 mm Hg 08/10/20 23 Blood pressure diastolic 00 mm Hg 023 Height 5 ft 6 in in 08/10/2023 Weight 213 lb 6 oz lbs 08/10/2023 BMI 34.44 kg/m2 08/10/2023 Encounters Encounter Location Date Provider Diagnosis [facility] [address] [place] [address] 08/10/2023 Jhonatan Read Jr Rectal bleeding K62.5 Assessments Encounter Date Diagnosis (ICD Code) Assessment Notes Treatment Notes Treatment Clinical Notes Section Notes 08/10/2023 Rectal bleeding (ICD-10 - K62.5) Colonoscopy material was printed Her rectal bleeding may be related to an anorectal source such as hemorrhoids. We discussed this today. We recommended she follow a high-fiber diet. She can use MiraLax and Metamucil as needed. She will have colonoscopy for further evaluation of her rectal bleeding. We discussed risks and benefits of the procedure today. She understands and agrees to proceed. For gas she can use riqo-fyk-[id number] r anti-gas remedies such as simethicone. Plan Of Treatment Medication Medication Name Sig Start Date Stop Date Notes MiraLax (colon prep) 17 GM/SCOOP mixed with Gatorade or Crystal Light Orally begin at 5:00 p.m. the day before the procedure for 1 day 08/10/2023 Treatment Notes Assessment Notes Rectal bleeding Colonoscopy material was printed Future Test Test Name Order Date COLONOSCOPY 08/10/2023 Next Appt Details Follow Up: 1 Year, Reason: Progress Notes * MAGDIEL BREENDOB: 8 (33 yo F)Acc No.[id number]:08/10/2023 Progress Notes Patient:?MAGDIEL BREEN Provider:?Jhonatan Read MD :1990???Age:33 Y???Sex:Female D ate:08/10/2023 Address:[address] [place] [address] Pcp:Deanna Durham M.D. Subjective: * Chief Complaints: * ???1. Patient presents today for a rectal bleeding. * HPI: ???New symptom(s):? The patient is a pleasant 33-year-old woman seen today in consultation. She has a history of rectal bleeding in the setting of constipation. Symptoms have been present for several months. There is no rectal pain. There is abdominal gas and no diarrhea. She tries to follow a high-fiber diet. She was seen in the emergency department in March with intermittent cramping and rectal bleeding for a month. Blood work was unremarkable. Rectal examination was described as normal. She was referred for further evaluation. Emergency room note and 15 pages of PCP notes are reviewed. * ROS:?General/Constitutional:?Change in appetite?denies.?Fatigue?denies.?ENT:?Patient denies?difficulty swallowing.?Respiratory:?Patient denies?shortness of breath.?Cardiovascular:?Patient denies?chest pain.?Gastrointestinal:?Comments?See HPI for details.?Genitourinary:?Difficulty urinating?denies.?Incontinence?denies.?Musculoskeletal:?Patient denies?muscle aches.?Skin:?Patient denies?pruritis.?Neurologic:?Patient denies?low back pain.?Psychiatric:?Patient denies?mental or physical abuse.? * Medical History:?Gastroesoph ageal reflux disease. * Surgical History:?Denies Pas t Surgical History. * Hospitalization/Major Diagno stic Procedure:?Denies Past Hospitalization. * Family History:?Father: daniel che?Mother: alive.? No family history of liver cancer or colon cancer. * Social History:?Tobacco Use:?Tobacco Use/Smoking?Patient is a?nonsmoker.?Drugs/Alcohol:?Alcohol Screen?Did you have a drink containing alcohol in the past year??No,?Points?0,?Interpretation?Negative.?Miscellaneous:?Marital status: single. Occupation: unemployed. * Medications:?Taking Omeprazo le 20 MG Capsule Delayed Release 1 capsule 30 minutes before morning meal Orally Once a day, Medication List reviewed and reconciled with the patient * Allergies:?N.K.D.A. Objective: * Vitals:?Wt: 213 lb 6 oz, Ht: 5 ft 6 in, BMI:34.44 Index, BP: 000/00 mm Hg, Temp: 98.0. * Examination: ???General Examination: ?GENERAL APPEARANCE:?in no acute distress.?HEAD:?normocephalic.?EYES:?sclera non-icteric.?ORAL CAVITY:?mucosa moist.?NECK/THYROID:?no lymphadenopathy.?SKIN:?anicteric.?HEART:?S1, S2 normal, no murmurs.?LUNGS:?clear to auscultation bilaterally.?CHEST:?normal shape and expansion.?ABDOMEN:?soft, nontender, nondistended, bowel sounds present, no organomegaly .?EXTREMITIES:?no clubbing, cyanosis, or edema.?PSYCH:?cognitive function intact.? Assessment: * Assessment: 1.?Rectal bleeding - K62.5 ( Primary)? Her rectal bleeding may be r elated to an anorectal source such as hemorrhoids. We discussed this today. We recommended she follow a high-fiber diet. She can use MiraLax and Metamucil as needed. She will have colonoscopy for further evaluation of her rectal bleeding. We discussed risks and benefits of the procedure today. She understands and agrees to proceed. For gas she can use aqla-bsv-yxvsagv anti-gas remedies such as simethicone. Plan: * Treatment: * Immunizations:? Influenza (Not administered - Refused: Patient decision) * Procedure Codes:?G9903 Pt sc rn tbco id as non user, G9745 DOC RSN FOR NOT SCREEN/REC F/U HBP * Preventive Medicine:? ??Counseling:?Care goal follow-up plan:?Above Normal BMI Follow-up?Giving encouragement to exercise,?BMI management provided?Yes.? * Follow Up:?1 Year * * Sign off status: Completed true * Provider:?Jhonatan Read MD Date:?1 10/10/2022 Generated for Usman white/Karla/eTransmitting on:?01/07/2025 04:31 PM EDT History and Physical Notes * HPI (History of Present Illness) Category Sub-Category Detail Notes Category Not es New symptom(s) The patient i s a pleasant 33-year-old woman seen today in consultation. She has a history of rectal bleeding in the setting of constipation. Symptoms have been present for several months. There is no rectal pain. There is abdominal gas and no diarrhea. She tries to follow a high-fiber diet. She was seen in the emergency department in March with intermittent cramping and rectal bleeding for a month. Blood work was unremarkable. Rectal examination was described as normal. She was referred for further evaluation. Emergency room note and 15 pages of PCP notes are reviewed. Examination Category Sub-Category Detail Notes Category Not es General Examination GENERAL APPEARANCE: in no acute di stress HEAD: normocephalic EYES: sclera non-icteric NECK/THYROID: no lymphadenopathy HEART: S1, S2 normal, no mu rmurs CHEST: normal shape and exp ansion LUNGS: clear to auscultatio n bilaterally ABDOMEN: soft, nontender, non distended, bowel sounds present, no organomegaly SKIN: anicteric EXTREMITIES: no clubbing, cyanosi s, or edema PSYCH: cognitive function i ntact ORAL CAVITY: mucosa moist
--- OUTSIDE RECORDS SUMMARY | 2025-01-07 16:31 | XMS_ITS | Patient Health Record ---
Author Organization [facility] Address [address] [place] [address] Care Team Providers Care Tosser Name Role Phone Deanna Durham M.D. Primary Care Provider Jhonatan Real Jr Unavailable [phone] Allergies No Known Allergies Reason For Referral No Information Medications Medication SIG (Take, Route, Frequency, Duration) [...] Problem Status W/U Status Risk Notes Problem [id number] Rectal bleeding (K62.5) Active confirmed Plan Of Treatment Future Test Test Name Order Date COLONOSCOPY 08/10/2023 Insurance Providers Payer Name Payer Address Payer Phone Subscriber Number Group Number Insured Name Patient Relationship to Insured Coverage Start Date Coverage End Date [employer] [address] [place] [phone] [id number] MAGDIEL BREEN Self - patient is the insured Medical (General) History Medical History History ICD Code Gastroesophageal reflux disease Surgical History Surgery Date(Month/Year)
--- OUTSIDE RECORDS SUMMARY | 2025-01-07 16:32 | XMS_ITS ---
Author Organization [facility] Address [address] [place] [address] Care Team Providers Care Asset Availability Leader Name Role Phone Deanna Durham M.D. Primary Care Provider Unava ilJhonatan Ayala Jr REASON FOR VISIT pathology Encounters Encounter Location Date Provider Diagnosis [facility] [address] [place] [phone] 09/15/2023 Jhonatan Read Jr Plan Of Treatment No Information Progress Notes * MAGDIEL BREENDOB: 8 (33 yo F)Acc No.[id number]:09/15/2023 Patient:?MAGDIEL BREEN :1990???Age:33 Y???Sex:Female Address:[address] [place] [address], [address] * true * Date:? Generated for Gatoi cindy/Karla/eTransmitting on:?01/07/2025 04:31 PM EDT
== END 2025-01-07 15:11 | disposition home or self-care (01) ==
LOC: HO.HWS 14:37
PROVIDERS: PCP Internal Medicine; Visit Provider Obstetrics & Gynecology
DX: Z01.419 Encounter for gynecological examination (general) (routine) without abnormal findings (principal)
CPT/HCPCS: 99395; 99459

== ENCOUNTER → 2025-01-07 14:37 | Outpatient (BNVA) | payer MEDICAID, SELFPAY | PROVIDERS: PCP Internal Medicine; Visit Provider Obstetrics & Gynecology | DX: Z01.419 Encounter for gynecological examination (general) (routine) without abnormal findings (principal) | CPT/HCPCS: 99395; 99459 ==